=== PATIENT | male | born 1950 | race Caucasian/White ===

== ENCOUNTER 2019-08-14 13:25 | Inpatient (IN) | payer OTHER ==
[2019-08-14] VITALS (14 sets, daily range): BP systolic 128–155; BP diastolic 77–87
[~2019-08-14] VITALS: Ht 172.7 cm; Wt 69.2 kg
--- NOTE | ~2019-08-14 | EMS ---
[facility] [address] [place] [address] EMS Patient Care Report Name: SHANTI MAHAN Room #: PRE [facility]..#: [id number] Admission: Attend Phys: Discharge: Date of : 52 Report #: [id number] THIS REPORT FOR: //name// Report Transmitted: 08/14/2019 13:03 EMS Care Summary [place], [place]/[facility] Incident [id number] @ 08/14/2019 12:43 Incident Location [address] [place] [address] Patient SHANTI MAHAN Male, 68 Years 1950 Patient Address [address] [place] [address] Patient History Diabetes, Patient Allergies No known allergies, Disposition Transported [place] [facility] Reason Diabetic Problem Transported To [facility] Narrative dispatched for a diabetic problem. upon arrival personnel was met at the front door by the pts friend who stated that he came over to help his friend when he found the pt laying on the ground. pt was found laying on the ground where his friend found him for and it was unknown how long he was there. he stated that the pt was a diabetic so a glucose was assessed which was 35. a patent iv was established with 100ml of d10 being administered. vitals were obtained. a glucose was then reassessed which showed 65 but pt was still confused and not fully alert. pt was placed onto the jaxon welding equipment sales representative and was carried to the stretcher. while being transferred the patent iv was compromised and was [facility] [address] [place] [address] EMS Patient Care Report Name: SHANTI MAHAN Room #: [facility]..#: [id number] Admission: Attend Phys: Discharge: Date of : 52 Report #: [id number] removed. once in the ambulance vitals were reassessed with no change in blood pressure. a blood sugar was then checked again which read 45. 1 g of oral glucose was then administered to the pt. a 12 lead showed elevation in lead 2, 3, avf, v4, v5, v6. no trauma was seen to the head neck or back. a stemi was then called to the hospital transportation began with no change in other vitals. pt denied any flu like symptoms. after arrival pt was transferred onto ed bed via draw sheet method. Initial Vitals @13:20P: 105,R: 25,GCS: 14,SpO2: 98, @12:53P: 64,R: 25,BP: 145/74,Pain: 0/10,GCS: 14,Glucose: 35,SpO2: 94,Revised Trauma: 12, @13:21P: 108,R: 25,BP: 132/83,Pain: 0/10,GCS: 14,SpO2: 97,Revised Trauma: 12, @13:12P: 113,R: 25,BP: 138/74,GCS: 14,Glucose: 65,SpO2: 98,Revised Trauma: 12, Assessments @12:50MENTAL:Confused,Person Oriented,Place Oriented,SKIN:HEENT:Head/Face: No Abnormalities,Neck/Airway: No Abnormalities,LUNG SOUNDS:General: No Abnormalities,ABDOMEN:General: No Abnormalities,PELVIS//GI:No Abnormalities,EXTREMITIES:Capillary Refill: Right Upper: < 2 Sec,Left Arm: No Abnormalities,Right Arm: No Abnormalities,Left Leg: No Abnormalities,Right Leg: No Abnormalities,PULSE:Radial: 2+ Normal,NEURO:No Abnormalities, Impression Diabetic Hypoglycemia Procedures @12:54ALS AssessmentResponse: UnchangedSucceeded@12:58Saline Lock 100cc (20 ga) Site: Forearm-LeftResponse: ImprovedSucceeded@12:59Dextrose 10% - 100 Milliliters (ml) - Intravenous (IV)Response: Improved@13:05Saline Lock cc (20 ga) Site: Antecubital-LeftResponse: UnchangedFailed@13:1212-Lead ECGResponse: UnchangedSucceeded@13:15STEMI AlertResponse: Unchanged@13:07Oral Glucose - 1 Grams (gms) - OralResponse: Unchanged Timeline 12:41,Call Received 12:41,Dispatch Notified 12:43,Dispatched 12:43,En Route 12:49,On Scene 12:50,At Patient 12:53,BP: 145/74 M,PULSE: 64,RR: 25 R,SPO2: 94 Ox,ETCO2: ,B,PAIN: 0,GCS: 14, 12:54,ALS Assessment,Response: UnchangedSucceeded, 12:58,Saline Lock 100cc 20 ga Site: Forearm-Left,Response: ImprovedSucceeded, 12:59,Dextrose 10% - 100 Milliliters (ml) - Intravenous (IV),Response: Improved [address] [address] EMS Patient Care Report Name: SHANTI MAHAN Room #: PRE M.R.#: [id number] Admission: Attend Phys: Discharge: Date of : 52 Report #: [id number] 13:05,Saline Lock cc 20 ga Site: Antecubital-Left,Response: UnchangedFailed, 13:07,Oral Glucose - 1 Grams (gms) - Oral,Response: Unchanged 13:12,BP: 138/74 M,PULSE: 113,RR: 25 R,SPO2: 98 Ox,ETCO2: ,B,PAIN: ,GCS: 14, 13:12,12-Lead ECG,Response: UnchangedSucceeded, 13:13,Depart Scene 13:15,STEMI Alert,Response: Unchanged 13:20,BP: / M,PULSE: 105,RR: 25 R,SPO2: 98 Ox,ETCO2: ,BG: ,PAIN: ,GCS: 14, 13:20,At Destination 13:21,BP: 132/83 M,PULSE: 108,RR: 25 R,SPO2: 97 Ox,ETCO2: ,BG: ,PAIN: 0,GCS: 14, 13:37,Call Closed Disclaimer v1.1 Copyright 2020 [employer] This EMS Care Summary contains data elements from the applicable legal record (which may be displayed differently). It is designed to provide pertinent information for the following purposes: continuity of care, clinical quality, and state data reporting. The complete legal record is available to ED staff and administrators of the receiving hospital in [employer]'s Patient Tracker. All data is provided "as is."
[~2019-08-14 13:25] MED LIST: CYCLOBENZAPRINE10 MG PO; EFFEXOR37.5 MG PO; GLUCOPHAGE1000 MG PO; GLUCOTROL5 MG PO; IBUPROFEN 600600 M1 PO; IBUPROFEN200 M2 PO; LEVIMIR PO; LIPITOR80 MG PO; NAPROXEN 375 M375 M1 PO; NEURONTIN 300300 M1 PO
[2019-08-14 13:44] LABS: HEMATOCRIT 47.5 % (42.0-52.0); HEMOGLOBIN 15.9 gm/dL (14.0-18.0); MCH 32.1 pg (26.0-34.0); MCHC 33.6 g/dL (28.0-37.0); MCV 95.5 fL (80.0-100.0); PLATELET COUNT 304 thou/uL (150-400); RBC 4.97 mil/uL (4.50-6.00); RDW 15.5 % (10.5-14.5)
[2019-08-14 13:53] LABS: CALCIUM 9.1 mg/dL (8.5-10.1); CREATININE 1.5 mg/dL (0.7-1.3)
[2019-08-14 14:01] LABS: BE(vivo) -6.9 mmol/L (-2 to +3); HCO3 15.5 mmol/L (22.0-26.0); PCO2 24.6 mmHg (35.0-45.0); PO2 88.1 mmHg (80.0-100.0); pH 7.416 (7.360-7.450)
[2019-08-14 14:04] LABS: ALBUMIN 3.3 g/dL (3.4-5.0); TOTAL BILIRUBIN 1.2 mg/dL (<0.1-1.0); TOTAL PROTEIN 8.7 g/dL (6.4-8.2)
[2019-08-14 14:06] LABS: TROPONIN-I 9.35 ng/mL (<0.06)
[2019-08-14 14:33] LABS: ABSOLUTE NEUTROPHILS 19.1 thou/uL (1.4-8.2); PLATELET ESTIMATE NORMAL
[2019-08-14 14:53] LABS: URINE BILIRUBIN 2+ (Negative); URINE BLOOD 3+ (Negative); URINE CLARITY CLEAR; URINE COLOR YELLOW; URINE GLUCOSE-RANDOM* NEGATIVE (Negative); URINE KETONES 1+ (Negative); URINE LEUKOCYTES-REFLEX NEGATIVE (Negative); URINE NITRITE-REFLEX NEGATIVE (Negative); URINE PROTEIN (DIPSTICK) 2+ (Negative); URINE SPECIFIC GRAVITY >= 1.030 (1.005-1.035); URINE UROBILINOGEN 0.2 E.U./dl (0.2-1.0)
[2019-08-14 14:57] LABS: ICTOTEST (BILI CONFIRMATORY) Negative (Negative)
[2019-08-14 15:07] LABS: AMP/METHAMP Negative (Negative); BARBITURATES Negative (Negative); BENZODIAZEPINES Negative (Negative); COCAINE Negative (Negative); METHADONE Negative (Negative); OPIATES Negative (Negative); PCP Negative (Negative)
[2019-08-14 15:10] LABS: BACTERIA-REFLEX 1-9 Few /HPF (None Seen); CASTS None Seen /LPF (None Seen); CRYSTALS None Seen /LPF (None Seen); SQUAMOUS None Seen /LPF (0-3); URINE RBC 0-2 Rare /HPF (0-2); URINE WBC-REFLEX None Seen /HPF (0-5)
[2019-08-14 15:28] LABS: INR 1.1; PROTIME 11.4 Seconds (9.3-11.4)
[2019-08-14 17:31] LABS: FOLIC ACID 19.9 ng/mL (8.6-58.9)
[2019-08-14 17:34] LABS: HEMATOCRIT 44.2 % (42.0-52.0); HEMOGLOBIN 14.6 gm/dL (14.0-18.0); MCH 31.7 pg (26.0-34.0); PLATELET COUNT 293 thou/uL (150-400); RDW 15.1 % (10.5-14.5); WBC 21.1 thou/uL (4.0-11.0)
[2019-08-14 17:36] LABS: MAGNESIUM 1.9 mg/dL (1.8-2.4); PHOSPHORUS 5.4 mg/dL (2.6-4.7)
[2019-08-14 18:14] LABS: ABSOLUTE NEUTROPHILS 17.7 thou/uL (1.4-8.2); ANISOCYTOSIS 2+
--- NOTE | 2019-08-14 20:59 | NUR ---
ASSUMED CARE OF PT AT APPROX 1730, REPORT TAKEN FROM ED NURSE GREGORY. PT CONFUSED, SLURRING SPEECH, AMHESH-PARESIS IN LEFT UPPER EXTREMITITY. TACHYCARDIC IN THE 110'S. LUNGS ARE CLEAR TO AUSCULTATION, ON RA. SWALLOW STUDY FAILED PER RN IN ED. HEPARIN GTT HAD TO BE RECALCULATED DUE TO INCORRECT WEIGHT IN DOSING CALCULATION. POSSIBLE WHIPPED TOPPING FINISHER TOMORROW, ALSO AN ECCO CARDIOGRAM. PT ON CIWA PROTOCAL, SCORE WAS A 4, NO PHARMACOLOGICAL INTERVENTIONS TAKEN. NIH STROKE SCALE WAS INIATIALLY A 19. PT'S COVID-19 RESULTS ARE NEGATIVE. TWO WOUNDS FOUND ON PT SACRUM, PICTURE TAKEN. WILL CONTINUE TO MONITOR.
[2019-08-15] VITALS (21 sets, daily range): BP systolic 111–159; BP diastolic 54–101
--- NOTE | 2019-08-15 02:02 | NUR ---
MOVED FROM ICU 240 TO ICU 247 PER BED. HEPARIN ADJUSTED PER PROTOCOL.
--- NOTE | 2019-08-15 04:26 | NUR ---
SLEPT PART OF SHIFT. DROWSY WHEN AWAKE BUT WILL FOLLOW SIMPLE COMMANDS. NOTED YELLOW DRAINAGE IN LEFT EYE AND CLEANED EVERY 2 HOURS. NOTED ANXIETY AND AGITATION, FOUND TALKING ON IMAGINARY PHONE TO FAMILY. REDIRECTED. REMEMBERS NURSES NAME AT TIMES. REPOSITIONED EVERY 2 HOURS FOR COMFORT AND SKIN CARE. GAMBOA REMAINS PATENT. WORKING ON GOALS AND PLAN OF CARE FOR NOC. NOT PROGRESSING TOWARDS DISCHARGE GOALS AT THIS TIME. CONTINUE TO ASSES CLOSELY.
--- NOTE | 2019-08-15 06:30 | NUR ---
NOTED WHEN PATIENT IS SLEEPING AND SNORING HE WILL DESAT TO 84% AND RECOVER QUICKLY TO 90'S%. HEAD IS ELEVATED. CONTINUE TO ASSES CLOSELY. MOVING LEFT LEG MORE THIS AM. STILL NOT MOVING LEFT ARM.
--- NOTE | 2019-08-15 08:03 | EKG ---
[facility] [place] [address] ELECTROCARDIOGRAM REPORT Name: SHANTI MAHAN Room #: 247-P ADM IN M.R.#: [id number] Admission: 08/14/19 Attend Phys: Fletcher Benson MD Discharge: Date of : 52 Report #: [id number] THIS REPORT FOR: cc: FAM - Family physician unknown FAM - Family physician unknown Raman Yuan MD [facility] THIS REPORT FOR: //name// [facility] ED Test Date: 2019-08-14 Test Time: 13:25:02 Pat Name: SHANTI MAHAN Department: Room: [facility] Gender: M Clinical Care Manager: ASHLEY : 1950 Requested By: Kathryn Moore Order Number: [id number] MD: Raman Yuan Measurements Intervals [place] Rate: 110 P: 88 AL: 131 QRS: -61 QRSD: 132 T: 10 QT: 371 QTc: 503 Interpretive Statements Baseline artifact Probable atrial flutter with 2:1 conduction Right bundle branch block Inferior myocardial infarction, age indeterminate No previous ECG available for comparison Electronically Signed On 08-15-2019 8:01:48 CDT by Raman Yuan [email or web address] <ELECTRONICALLY SIGNED> By: Raman Yuan MD, [facility] 08/15/19 0801 1325 1325 Raman Yuan MD, [facility] /EPI
[2019-08-15 08:34] LABS: HEMATOCRIT 40.8 % (42.0-52.0); HEMOGLOBIN 13.6 gm/dL (14.0-18.0); MCH 32.3 pg (26.0-34.0); MCHC 33.3 g/dL (28.0-37.0); RBC 4.21 mil/uL (4.50-6.00); RDW 15.3 % (10.5-14.5); WBC 17.9 thou/uL (4.0-11.0)
[2019-08-15 08:43] LABS: ALBUMIN 2.7 g/dL (3.4-5.0); CALCIUM 7.7 mg/dL (8.5-10.1); CREATININE 1.1 mg/dL (0.7-1.3); TOTAL BILIRUBIN 0.9 mg/dL (<0.1-1.0); TOTAL PROTEIN 6.5 g/dL (6.4-8.2)
[2019-08-15 08:50] LABS: POTASSIUM 3.4 mmol/L (3.5-5.1)
--- NOTE | 2019-08-15 10:12 | NUR ---
0700-ASSUMED CARE OF PT.--VW
--- NOTE | 2019-08-15 10:14 | 2DMMODE ---
[facility] [address] [place] [address] 2 D/M-MODE ECHOCARDIOGRAM Name: SHANTI MAHAN Room #: 247-P ADM IN M.R.#: [id number] Admission: 08/14/19 Attend Phys: Fletcher Benson MD Discharge: Date of : 52 Report #: [id number] THIS REPORT FOR: cc: FAM - Family physician unknown FAM - Family physician unknown Paulino Arechiga MD ~ APPROVED REPORT Study performed: 08/15/2019 09:28:08 EXAM: Comprehensive 2D, Doppler, and color-flow Echocardiogram Patient Location: ICU Room #: 247 Status: routine BSA: 1.74 HR: 107 bpm BP: 136/84 mmHg Rhythm: NSR/tachy Other Information Study Quality: Adequate/not all measurements taken. Technically limited study due to heavy breathing and movement. No cooperation. Indications NSTEMI. ETOH withdrawls, HTN. 2D Dimensions IVSd: 14.54 (7-11mm) LVOT Diam: 19.74 (18-24mm) LVDd: 44.90 mm PWd: 9.50 (7-11mm) LVDs: 35.71 (25-40mm) Aortic Root: 34.51 mm Aortic Valve AoV Peak Ant.: 1.49 m/s AO Peak Gr.: 8.82 mmHg LVOT Max P.21 mmHg LVOT Max V: 1.14 m/s AVIS Vmax: 2.35 cm2 Mitral Valve E/A Ratio: 0.8 MV Decel. Time: 205.70 ms [facility] [address] [place] [address] 2 D/M-MODE ECHOCARDIOGRAM Name: SHANTI MAHAN Room #: 247-P [facility] IN M.R.#: [id number] Admission: 08/14/19 Attend Phys: Fletcher Benson, Discharge: Date of : 52 Report #: [id number] E Max Ant.: 1.06 m/s MV A Ant.: 1.26 m/s MV PHT: 59.65 ms Pulmonary Valve PV Peak Ant.: 1.07 m/s PV Peak Gr.: 4.56 mmHg Tricuspid Valve TR Peak Ant.: 2.96 m/s RAP Estimate: 5.00 mmHg TR Peak Gr.: 35.09 mmHg PA Pressure: 40.00 mmHg Left Ventricle The left ventricle is normal size. Regional wall motion abnormalities are noted. Apical hypokinesis Mild basal septal hypertrophy is present. Left ventricular systolic function is mild to moderately decreased. LVEF is 40-45%. Mild diastolic dysfunction is present (impaired relaxation pattern). Right Ventricle The right ventricle is normal size. The right ventricular systolic function is normal. Atria The left atrium size is normal. The right atrium size is normal. Aortic Valve The aortic valve is normal in structure. No aortic regurgitation is present. There is no aortic valvular stenosis. Mitral Valve The mitral valve is normal in structure. There is no mitral valve regurgitation noted. No evidence of mitral valve stenosis. Tricuspid Valve The tricuspid valve is normal in structure. Trace to mild tricuspid regurgitation. Estimated PAP is 40mmHg. Pulmonic Valve Pulmonic valve is not well visualized. Great Vessels The aortic root is normal in size. Descending aorta is not well visualized. IVC is normal in size and collapses >50% with inspiration. [facility] [address] [place] [address] 2 D/M-MODE ECHOCARDIOGRAM Name: SHANTI MAHAN Room #: 247-P [facility] IN M.R.#: [id number] Admission: 08/14/19 Attend Phys: Fletcher Benson, Discharge: Date of : 52 Report #: [id number] Pericardium There is no pericardial effusion. <Conclusion> The left ventricle is normal size. LVEF is 40-45%. Regional wall motion abnormalities are noted. Apical hypokinesis The aortic valve is normal in structure. The mitral valve is normal in structure. The tricuspid valve is normal in structure. Trace to mild tricuspid regurgitation. Estimated PAP is 40mmHg. Pulmonic valve is not well visualized. There is no pericardial effusion. <ELECTRONICALLY SIGNED> By: Paulino Arechiga MD 08/15/19 1012 1012 1012 Paulino Arechiga MD /FLORIDALMA
--- NOTE | 2019-08-15 16:56 | NUR ---
INITIAL ASSESSMENT: Received consult. ABEL reviewed chart and spoke with nursing and attending physician. Pt was admitted from home due to Nstemi/ETOH withdrawal. Neuro consulted. Pt with left sided weakness. Pt to have an MRI today. Pt unable to answer questions. ABEL spoke with pt's son, Patel, via phone. Introduced role of SW. Pt normally lives at home alone. Pt has been independent with ADLs. Pt does have a cane and cpap at home. No hx of services or post-acute placement. Pt's PCP was Dr. Kei Leija. However, Dr. Leija recently retired and pt's son is unsure which physician pt sees now. Pt with hx of daily ETOH use (2-3 vodka drinks). Pt's son states that pt's ETOH consumption has increased over the past few years. Pt with hx of DM and pt has not been controlling his BG as recommended. Will need therapy evaluations when able to participate. ABEL is following to assist as needed with discharge planning.
[2019-08-16] VITALS (21 sets, daily range): BP systolic 123–153; BP diastolic 69–98
[2019-08-16 04:57] LABS: HEMATOCRIT 41.4 % (42.0-52.0); MCHC 33.8 g/dL (28.0-37.0); MCV 94.6 fL (80.0-100.0); RBC 4.37 mil/uL (4.50-6.00); RDW 14.8 % (10.5-14.5); WBC 16.2 thou/uL (4.0-11.0)
[2019-08-16 05:27] LABS: CALCIUM 8.8 mg/dL (8.5-10.1); CREATININE 0.8 mg/dL (0.7-1.3); MAGNESIUM 2.1 mg/dL (1.8-2.4); PHOSPHORUS 1.5 mg/dL (2.5-4.9); POTASSIUM 3.1 mmol/L (3.5-5.1)
--- NOTE | 2019-08-16 06:16 | NUR ---
Received report and assumed patient care at 1900. Patient continues to have slurred/garbbled speech with some words being incomprehensible. At times patient oriented and at other times patient disoriented. Patient has no complaints of chest pain being that his cardiac markers are elevated and no signs of acute ischemia was noted. VS remained stable throughout this shift and patient monitored closely for any bleeding or changes in status.
--- NOTE | 2019-08-16 09:15 | NUR ---
Call placed to Dr Benson and Belem Teresa RN for cardiology. Order received to stop Heparin gtt while pt goes to radiology for MRI tests. Obtain Aptt and restart heparin gtt upon return to ICU. Follow protocol.
--- NOTE | 2019-08-16 10:45 | NUR ---
Pt returned to ICU following MRI and placed back on monitors. Heparin gtt resumed at previous rate (17.94 unit/kg/hr) and will order stat Aptt. Dr Benson here to see pt upon return. Pt is drowsy but responsive.
--- NOTE | 2019-08-16 10:56 | HC ---
[facility] [place] [address] [place] [address] CONSULTATION Name: SHANTI MAHAN Room #: 247-P ADM IN M.R.#: [id number] Admission: 08/14/19 Attend Phys: Fletcher Benson MD Discharge: Date of : 52 Report #: [id number] THIS REPORT FOR: cc: FAM - Family physician unknown FAM - Family physician unknown Cy Reina MD ~ CC: [facility] unknown Paulino Benson DATE OF SERVICE: 08/15/2019 CHIEF COMPLAINT: Sacral pressure ulceration. HISTORY OF PRESENT ILLNESS: This is a 68-year-old male patient with a history of hypertension, depression, and alcohol abuse, was found unresponsive at home by EMS. He had an elevated troponin, a glucose of 35 and was given D10. He is in the ICU. He is not on a respirator. He is not able to answer any questions and is somewhat obtunded. ALLERGIES: No known drug allergies. MEDICATIONS: Include cyclobenzaprine, gabapentin, Effexor, Glucotrol, metformin, atorvastatin, ibuprofen. SOCIAL HISTORY: He has a history of daily alcohol use. He is a former smoker, apparently uses marijuana. REVIEW OF SYSTEMS: Unobtainable due to the patient's unresponsive condition. PHYSICAL EXAMINATION: VITAL SIGNS: At this time include temperature 36.3, pulse 104, respiratory rate 22, blood pressure 143/85. GENERAL: This is a chronically ill-appearing male patient who appears to be obtunded. He does moan. He is slow to open his eyes to painful stimuli. HEENT: Head normocephalic. Nose and throat clear. NECK: Supple. LUNGS: Diminished. HEART: Regular. ABDOMEN: Soft. Bowel sounds present. EXTREMITIES: Without clubbing or cyanosis. Examination of the sacral region and the back demonstrates a dry eschar on the sacral region. It is not overtly infected. It is a little bit soft. NEUROLOGIC: The patient does appear to be moving symmetrically. LABORATORY DATA: Sodium 144, potassium 3.4, chloride 108, CO2 of 20, BUN 27, [facility] [address] [place] [address] CONSULTATION Name: SHANTI MAHAN Room #: 247-P [facility] ..#: [id number] Admission: 08/14/19 Attend Phys: Fletcher Benson MD Discharge: Date of : 52 Report #: [id number] creatinine 1.1, glucose 212, calcium 7.7, magnesium 2.0. AST is 226, ALT is 71, alkaline phosphatase is 55. CPK is 5637. Troponin I is 12.7. Albumin is 2.7. ____ White blood cell count 21.1 with hemoglobin of 14.6. CLINICAL IMPRESSION: 1. An unstageable pressure ulcer of the sacrum after having been found down unresponsive at home. 2. Alcohol withdrawal. 3. History of diabetes mellitus. 4. Profound hypoglycemia. 5. Moderate protein-calorie malnutrition, albumin 2.7. RECOMMENDATIONS: At this point in time, we will recommend Xeroform and Border foam to the sacral ulcer daily. He will need a low air loss mattress with q. 2 hour turning and positioning, aggressive nutritional support and aggressive management of his medical condition and potential with alcohol withdrawal. We will consider some bedside debridement once he is more stabilized. I appreciate being asked to see him in consultation. <ELECTRONICALLY SIGNED> By: Cy Reina MD 08/16/19 1056 [id number] 50 Cy Reina MD /nt
--- NOTE | 2019-08-16 15:43 | NUR ---
SW reviewed chart and spoke with attending physician. Pt had MRI earlier today. Neuro and psych are following and will re-evaluate when pt is more alert and able to participate. SW is following to assist as needed with discharge planning.
--- NOTE | 2019-08-16 19:00 | NUR ---
Report given to RN assuming care. Heparin gtt was adjusted per protocol. Pt continues to ask for water. Restless at times.
--- NOTE | 2019-08-16 19:42 | NUR ---
1845HRS APTT 71.6 HEPARIN ADJUSTED AT 0728HRS TO 17.87 UNITS/KG/HR WITNESSED BY VIVIANE Toney RN
[2019-08-17] VITALS (7 sets, daily range): BP systolic 108–145; BP diastolic 64–90
[2019-08-17 02:00] LABS: HEMATOCRIT 36.7 % (42.0-52.0); HEMOGLOBIN 12.2 gm/dL (14.0-18.0); MCH 31.5 pg (26.0-34.0); MCHC 33.4 g/dL (28.0-37.0); MCV 94.5 fL (80.0-100.0); RBC 3.88 mil/uL (4.50-6.00); RDW 14.8 % (10.5-14.5); WBC 13.5 thou/uL (4.0-11.0)
[2019-08-17 02:03] LABS: CALCIUM 8.4 mg/dL (8.5-10.1); CREATININE 0.9 mg/dL (0.7-1.3); MAGNESIUM 1.9 mg/dL (1.8-2.4)
--- NOTE | 2019-08-17 02:22 | NUR ---
@0140 HRS APTT 54.4 THERAPEUTIC, NO DOSE CHANGE.
--- NOTE | 2019-08-17 06:33 | NUR ---
PT A&O X4 OCCASIONALLY FORGETFUL RESTLESS AND ANXIOUS. ABLE TO ANSWER TO BASIC QUESTIONS. DENIES PAIN. PT HAD MULTIPLE ATTEMPTS TO CRAWL OOB AT HS AND PULLING LINES. CONTINUES ON SOFT RESTRAINTS. NPO ORAL CARE PROVIDED THROUGHOUT THE NIGHT. NO EVIDENCE OF ETHOL W/DRAWAL NOTED. OCC NON-PODUCTIVE COUGH. PT ON 2L O2 PER NC IN PLACE OF CPAP WEARS NIGHTLY AT HOME. PT ON HEPARIN GTT LAST APPT OVERNIGHT WAS THERAPEUTIC. AM LAB K=3.0 ORDER OBTAINED FOR KCL 40 MEQ. PT DIABETIC. ON PPN. ACCU CHECKS Q6H. SPOUSE CALLED X2 OVERNIGHT TO CHECK ON THE PT SHE WAS VERY EMOTIONAL AND ASKED THIS NURSE TO EXPLAIN WHY SHE CANNOT COME TO SEE HIM AT THE HOSP D/T COVID 19 RESTRICTIONS
--- NOTE | 2019-08-17 09:43 | NUR ---
ASSESSMENTS AND INTERVENTIONS DOCCUMENTED. PATIENT A LITTLE RESTLESS AT THE START OF SHIFT. RESTRAINTS REMOVED PATIENT MORE CALM. SWALLOW EVALUATION DONE AND PATIENT GIVEN DIET. DR. REYNA ROUNDING ON PATIENT ORDERS FOR TRANSFER TO CCU RECIEVED.
--- NOTE | 2019-08-17 15:20 | NUR ---
SW reviewed chart and spoke with attending physician. Pt more alert today. Therapy ordered to evaluate pt for discharge needs. Discussed with 5[facility] rehabilitation services coordinator to see if pt would be a candidate for inpt acute rehab. Pt may transfer out of ICU later today. ABEL is following to assist as needed with discharge planning.
--- NOTE | 2019-08-17 23:09 | NUR ---
Pt confused. Pulled out IV left forearm. Complete bed bath given. Hair washed. Linens changed. New #20 PIV placed right forearm x 1 attempt for PPN. Repositioned for comfort. Pt appreciative of care, pleasant.
[2019-08-18] VITALS (7 sets, daily range): BP systolic 111–134; BP diastolic 66–96
[2019-08-18 04:17] LABS: HEMATOCRIT 40.3 % (42.0-52.0); HEMOGLOBIN 13.1 gm/dL (14.0-18.0); MCH 31.8 pg (26.0-34.0); MCHC 32.5 g/dL (28.0-37.0); MCV 97.8 fL (80.0-100.0); RBC 4.12 mil/uL (4.50-6.00); RDW 14.9 % (10.5-14.5); WBC 10.4 thou/uL (4.0-11.0)
[2019-08-18 04:23] LABS: CALCIUM 8.4 mg/dL (8.5-10.1); CREATININE 0.8 mg/dL (0.7-1.3); MAGNESIUM 1.8 mg/dL (1.8-2.4); PHOSPHORUS 2.7 mg/dL (2.5-4.9); POTASSIUM 3.3 mmol/L (3.5-5.1)
--- NOTE | 2019-08-18 06:33 | NUR ---
Shift summary: Pt awake all night. Restless and impulsive. Pleasantly confused. Oriented to self and occasionally place and situation. Very impulsive. VSS. Afebrile. SR. Room air. Pt constantly pulling nasal cannula off. Room air SaO2 generally >94%. Lungs coarse. Harsh congested cough. Swallows sputum. BS active. Tolerating diet. Does not care for honey thickened liquids or pureed diet but ate 100%. PPN as ordered. Pt incontinent of multiple liquid stools requiring complete bed changes and baths. Servin with adequate output. Heparin gtt therapeutic. Awaiting CCU bed availability.
--- NOTE | 2019-08-18 14:25 | NUR ---
SW reviewed chart and spoke with attending physician. Pt failed swallow eval. Pt to have cardiac cath today. PT/OT on hold and will evaluate pt over the weekend. ABEL discussed case with [facility] workplace rehabilitation officer, who will eval pt on Wednesday. No weekend discharge planned. ABEL is following to assist as needed with discharge planning.
--- NOTE | 2019-08-18 15:55 | NUR ---
ASSESMENTS AND INTERVENTIONS DOCCUMENTED. PATIENT LEFT UNIT FOR VIDEO SWALLOW. PATIENT NOT ABLE TO TOLERATE IT. PATIENT DIET CHANGED TO NPO AND CXR ORDERED. PATIENT'S SON CALLED AND UPDATED AND EDUCATED ABOUT POC. CONSENT RECIEVED. PATIENT RETURNING TO UNIT AT 1555. PATIENT FLAT, RESTING VS STABLE AND RIGHT GROIN SITE IS CLEAN, DRY AND INTACT. RN TO MONITOR.
[2019-08-18 16:56] LABS: PROTIME 9.8 Seconds (9.3-11.4)
[2019-08-18 16:57] LABS: APTT 30.1 Seconds (24.5-32.8)
[2019-08-18 17:05] LABS: URINE BILIRUBIN NEGATIVE (Negative); URINE BLOOD TRACE (Negative); URINE CLARITY CLEAR; URINE COLOR YELLOW; URINE GLUCOSE-RANDOM* NEGATIVE (Negative); URINE KETONES NEGATIVE (Negative); URINE LEUKOCYTES-REFLEX NEGATIVE (Negative); URINE NITRITE-REFLEX NEGATIVE (Negative); URINE PROTEIN (DIPSTICK) NEGATIVE (Negative)
[2019-08-19 03:00] VITALS: BP 127/64
[2019-08-19 04:08] LABS: GLYCOHEMOGLOBIN (HGB A1C) 6.9 % (4.8-5.6)
[2019-08-19 05:43] LABS: HEMOGLOBIN 13.1 gm/dL (14.0-18.0); MCH 31.9 pg (26.0-34.0); MCHC 33.6 g/dL (28.0-37.0); MCV 94.9 fL (80.0-100.0); RBC 4.1 mil/uL (4.50-6.00); RDW 14.3 % (10.5-14.5); WBC 9.2 thou/uL (4.0-11.0)
--- NOTE | 2019-08-19 05:44 | NUR ---
END OF SHIFT NOTE. A/OX3-4 WITH PERIODS OF FORGETFULNESS. DENIES PAIN. SR WITH BBB ON MONITOR, 70S. BP 130-140S. 2/1 PULSES. NO EDEMA. LUNGS DIMINISHED. O2 SATS 98-100 ON 2L VIA NC. INTERMITENT COUGH. NPO, FAILED VIDEOSWALLOW STUDY ON 08/18/19, TO RETEST TODAY. GAMBOA DRAINING YELLOW URINE, OUTPUT 40-60/HR. DRESSING TO COCCYX WOUND CHANGED. PPN INFUSING @ 80CC/HR THROUGH RIGHT FOREARM IV. PATIENT RESTING WITH EYES CLOSED AT THIS TIME. WILL REPORT OFF TO DAY SHIFT RN.
[2019-08-19 05:54] LABS: CALCIUM 8.6 mg/dL (8.5-10.1); MAGNESIUM 1.8 mg/dL (1.8-2.4); POTASSIUM 4.2 mmol/L (3.5-5.1)
[2019-08-19 06:00] LABS: PHOSPHORUS 3.9 mg/dL (2.5-4.9)
[2019-08-19 08:01] VITALS: BP 92/69
--- NOTE | 2019-08-19 09:01 | NUR ---
ASSUMED CARE AT 0700, ASSESSMENT AND VITAL SIGNS COMPLETED PER ICU PROTOCOL. 0730: PT VERY UPSET THAT HE IS NPO AND UNABLE TO EAT AND DRINK. RN CALLED AND LEFT A VOICEMAIL FOR SPEECH THERAPY, HE IS SUPPOSED TO BE REVALUATED TODAY. 899: DR. RODRIGUEZ ROUNDED THIS AM, SPOKE WITH PT ABOUT POC. PT ONCE AGAIN VOICED HIS FRUSTRATION WITH BEING NPO. PT DESIRES TO SPEAK WITH HIS SON, PT'S PHONE IS . PT REQUESTED RN TO CALL SON AND BRING HIS PHONE LINUX SYSTEM ADMINISTRATOR TO THE HOSPITAL. 904: RN CALLED PT'S SON, AUNDREA, WHOM PROVIDED SECURITY CODE. RN GAVE UPDATE PT'S CONDITION. SON SAID HE WILL BRING PT'S PHONE LINUX SYSTEM ADMINISTRATOR TO THE HOSPITAL.
[2019-08-19 09:44] VITALS: BP 120/59
[2019-08-19 15:50] VITALS: BP 117/94
--- NOTE | 2019-08-19 19:40 | NUR ---
PT TRANSFERED FROM ER IN STABLE CONDITION. WILL CONTINUE TO MONITOR.
[2019-08-19 19:55] VITALS: BP 121/76
[2019-08-19 23:48] VITALS: BP 121/72
--- NOTE | 2019-08-20 04:46 | NUR ---
ASSESSMENT DOCUMENTED.PT BEEN RESTING IN NO ACUTE DISTRESS.A/O.DENIES PAIN OR ANY DISCOMFORT.TURNS SELF IN BED.SR W/BBB ON MONITOR.ON RA W/O RESP DISTRESS.PT DENIES ANY NEEDS AT THIS TIME.WILL CONT TO MONITOR PER POC.
[2019-08-20 06:18] VITALS: BP 125/81
[2019-08-20 07:40] VITALS: BP 143/67
[2019-08-20 11:23] LABS: HEMATOCRIT 38.8 % (42.0-52.0); HEMOGLOBIN 13.3 gm/dL (14.0-18.0); MCH 32.1 pg (26.0-34.0); MCHC 34.3 g/dL (28.0-37.0); MCV 93.6 fL (80.0-100.0); RBC 4.15 mil/uL (4.50-6.00); RDW 14.4 % (10.5-14.5); WBC 12.3 thou/uL (4.0-11.0)
[2019-08-20 11:30] VITALS: BP 111/60
[2019-08-20 11:37] LABS: ALBUMIN 2.1 g/dL (3.4-5.0); CALCIUM 8.8 mg/dL (8.5-10.1); CREATININE 1.1 mg/dL (0.7-1.3); POTASSIUM 3.9 mmol/L (3.5-5.1); TOTAL BILIRUBIN 0.4 mg/dL (<0.1-1.0)
[2019-08-20 13:37] LABS: CHOLESTEROL 209 mg/dL (<200); HDL CHOLESTEROL 40 mg/dL (>40); LDL CHOLESTEROL 140 mg/dL (<100); TC:HDL 5.2 Ratio (Not establshd); TRIGLYCERIDE 145 mg/dL (<150); VLDL 29 mg/dL (<40)
[2019-08-20 17:15] VITALS: BP 105/66
[2019-08-20 18:15] VITALS: BP 112/87
--- NOTE | 2019-08-20 19:41 | NUR ---
ASSESSMENT CHARTED. PT ALERT AND ORIENTED WITH FORGETFULNESS. DENIED HAVING PAIN OR DISCOMFORT. VSS. PT FELL @ 1715 REPORT THAT HE WAS TRANSFERING HIMSELF TO THE BATHROOM AND HIS LEGS GAVE UP ON HIM AND HE ALSO FELT WEAK. DENIED HAVING PAIN AFTER FALL. VSS. NO INJURY NOTED. DR. RODRIGUEZ NOTIFED, HOUSESUPERVISOR NOTIFIED, AND SON NOTIFIED. ON COMING NURSE NOTIFIED ABOUT PT'S FALL. FALL PRECAUTION IN PLACE. WILL CONTINUE TO MONITOR.
[2019-08-20 20:01] VITALS: BP 104/83
--- NOTE | 2019-08-21 02:47 | NUR ---
ASSESSMENT DOCUMENTED.PT RESTING AT THIS TIME.PT WAS IMPULSIVE AT THE BEGINNING OF THE SHIFT DEMANDING TO HAVE REGULAR WATER RATHER THAN THICKENED WATER,EDUCATED ON THE RATIONALE OF GIVING HIM THICKENED WATER,PT VOICED UNDERSTANDING BUT CONTINUES TO ASK FOR REGULAR WATER,REQUESTED TO HAVE CPAP,FOLDER MACHINE NOTIFIED,CPAP ORDERED AND ON AT THIS TIME,TOLERATING.DENIES PAIN.FALL PRECAUTIONS IN PLACE.WILL CONT TO MONITOR PER POC.
[2019-08-21 04:22] VITALS: BP 99/81
[2019-08-21 04:33] LABS: CALCIUM 8.3 mg/dL (8.5-10.1); CREATININE 1.1 mg/dL (0.7-1.3); MAGNESIUM 1.9 mg/dL (1.8-2.4); POTASSIUM 3.7 mmol/L (3.5-5.1)
[2019-08-21 04:44] LABS: HEMATOCRIT 36.6 % (42.0-52.0); HEMOGLOBIN 12.5 gm/dL (14.0-18.0); MCH 32.2 pg (26.0-34.0); MCHC 34.1 g/dL (28.0-37.0); MCV 94.4 fL (80.0-100.0); RBC 3.87 mil/uL (4.50-6.00); RDW 14.5 % (10.5-14.5); WBC 13.5 thou/uL (4.0-11.0)
[2019-08-21 08:05] VITALS: BP 128/67
[2019-08-21] MEDS ORDERED: IMDUR 30 MG TAB30 M1 PO ×2 (09:46)
[2019-08-21] MEDS ORDERED: ASPIR 8181 MG PO ×2 (09:46)
[2019-08-21] MEDS ORDERED: COREG3.125 MG PO ×2 (09:46)
[2019-08-21 11:45] VITALS: BP 132/61
--- NOTE | 2019-08-21 16:14 | NUR ---
ABEL reviewed chart and spoke with attending physician. Pt was transferred to from ICU. Pt to have video swallow study. CTS consulted. Pt will need CABG. 5N consult ordered to evaluate pt for possible admission to inpt acute rehab. Recommendation made for pt to go to post-acute for continued rehab services/medical mgmt and supervision. ABEL spoke with pt's son, Patel, via phone to provide update. Pt's son is agreeable with 5N consult. ABEL also sent SNF list to Patel via email for review, should SNF placement be needed. ABEL discussed with 5N naval gunfire liaison officer, who states they are able to accept pt when medically stable. ABEL is following to assist as needed with discharge planning.
[2019-08-21 16:20] VITALS: BP 120/65
--- NOTE | 2019-08-21 16:51 | NUR ---
PT ALERT AND ORIENTED WITH FORGETFULNESS. REPORT FEELING MUCH BETTER TODAY. HAD LOW BP THIS AM. PASSED VIDEO SWALLOW STUDY. DIET ADVANCED TO REGULAR DIET. NPO AFTER MIDNIGHT FOR EGD IN AM. FALL PRECAUTION IN PLACE. WILL CONTINUE TO MONITOR.
[2019-08-21 20:46] VITALS: BP 124/76
[2019-08-22 04:33] VITALS: BP 118/55
[2019-08-22 05:18] LABS: HEMATOCRIT 38.4 % (42.0-52.0); HEMOGLOBIN 12.8 gm/dL (14.0-18.0); MCH 31.7 pg (26.0-34.0); MCHC 33.5 g/dL (28.0-37.0); MCV 94.6 fL (80.0-100.0); RBC 4.06 mil/uL (4.50-6.00); RDW 14.4 % (10.5-14.5); WBC 12.8 thou/uL (4.0-11.0)
[2019-08-22 05:29] LABS: CALCIUM 8.3 mg/dL (8.5-10.1); CREATININE 1.1 mg/dL (0.7-1.3); POTASSIUM 4.1 mmol/L (3.5-5.1)
--- NOTE | 2019-08-22 05:31 | NUR ---
pt resting quietly with cpap till around 0100 and wanted cpap off, vss, no c/o pain, npo after mnoc for egd today, son alayna called and wants Doctor to call with plans for today, will con't to monitor per ppoc.
[2019-08-22 08:29] VITALS: BP 125/73
--- NOTE | 2019-08-22 08:57 | HC ---
[facility] [place] [address] CONSULTATION Name: SHANTI MAHAN Room #: 209-P [facility] IN .R.#: [id number] Admission: 08/14/19 Attend Phys: Fletcher Benson MD Discharge: Date of : 52 Report #: [id number] THIS REPORT FOR: cc: FAM - Family physician unknown FAM - Family physician unknown Kristofer Chen MD ~ CC: ROGERS unknown Paulino Benson DATE OF SERVICE: 08/19/2019 We were asked to see the patient by Dr. Arechiga. HISTORY OF PRESENT ILLNESS: The patient is a 68-year-old with coronary artery disease. The patient was admitted on 08/14/2019 after having been found unresponsive at home. EMS brought the patient to the hospital. When EMS arrived, glucose was 35. EKG showed ST elevations was called out as STEMI. The patient denied having had chest pain and in fact states he does not have shortness of breath or chest pain on exertion or at rest previously. Since admission, patient has been treated for alcohol withdrawal. He also has been treated for sacral ulcer. Cardiac catheterization was done yesterday that showed 3-vessel coronary artery disease. The patient has a diagnosis of diabetes mellitus and with the 3-vessel disease, we were consulted for consideration of bypass surgery. PAST MEDICAL HISTORY: Significant for hypertension. MEDICATIONS AT HOME: Includes cyclobenzaprine, gabapentin. ALLERGIES: None known. SOCIAL HISTORY: The patient reports tobacco use in the past. Toxicology report states the patient does use marijuana and alcohol by history. REVIEW OF SYSTEMS: Unobtainable on admission. GENERAL: No fever or chills. EYES: No vision change. HEENT: Denies headache, nasal discharge. RESPIRATORY: Denies cough, shortness of breath. CARDIAC: Denies angina. Denies palpitations. GASTROINTESTINAL: Denies nausea, vomiting blood. GENITOURINARY: Denies urgency, frequency blood. MUSCULOSKELETAL: Denies bone and joint pain. [facility] [address] [place] [address] CONSULTATION Name: SHANTI MAAHN Room #: 209-P [facility] IN [facility]#: [id number] Admission: 08/14/19 Attend Phys: Fletcher Benson MD Discharge: Date of : 52 Report #: [id number] SKIN: Denies rash or infection. ENDOCRINE: Denies goiter or tremors. PSYCHIATRIC: Does drink alcohol reported either more vodka a good day. NEUROLOGIC: As mentioned, found unresponsive, but denies previous neurologic dysfunction. PHYSICAL EXAMINATION: GENERAL: The patient is sitting in chair, awake, alert, seems comfortable. VITAL SIGNS: Heart rate 88, sinus. O2 sat 97 on 2 liters, blood pressure 120/59 by cuff. HEENT: No scleral icterus, no arcus. NECK: No mass, no bruit. CHEST: Some scattered rhonchi. HEART: Rhythm regular, no murmurs. ABDOMEN: Soft. EXTREMITIES: No clubbing, cyanosis or edema. VASCULAR: No obvious saphenous vein problems, 2+ popliteal pulses. ASSESSMENT: The patient has severe 3-vessel coronary artery disease with diabetes mellitus whether or not previously diagnosed. I have discussed coronary artery bypass surgery for treatment of this. Risks and details were discussed. Risks include but are not limited to bleeding, infection, anesthesia risks, heart problems, lung problems, stroke and . The patient understands all of this and wishes to reflect. I will discuss timing of surgery with others in view of admission for what appears to be toxic metabolic encephalopathy. Thank you for the consult. <ELECTRONICALLY SIGNED> By: Kristofer Chen MD 08/22/19 0857 [id number] 31 Kristofer Chen MD /nt
[2019-08-22 11:05] VITALS: BP 118/64
--- NOTE | 2019-08-22 13:33 | NUR ---
Patient accepted to [facility] acute rehab. He reported to RN practioner he wanted his son to make decision of transfer. Left message for son and no response. Sp with patient who is agreeable to transfer to [facility]. Updated phys and RN.
[2019-08-22] MEDS ORDERED: SSD CREAM 1% 5050 GM TOP ×2 (13:57)
[2019-08-22] MEDS ORDERED: ENOXAPARIN40 MG/0.1 SUBQ ×2 (13:57)
[2019-08-22] MEDS ORDERED: LIPITOR40 MG PO ×2 (13:57)
[2019-08-22] MEDS ORDERED: SIMETHICON CHEW80 M1 PO ×2 (13:57)
[2019-08-22] MEDS ORDERED: MUPIROCIN22 GM NASAL ×2 (13:57)
[2019-08-22] MEDS ORDERED: VITAMIN B-1100 M2 PO ×2 (13:57)
[2019-08-22] MEDS ORDERED: NOVOLOG100 UNIT/1 SUBQ ×2 (13:58)
--- NOTE | 2019-08-22 15:56 | NUR ---
ASSUMED CARE AT SHIFT CHANGE, ALERT AND ORIENTED BUT CONFUSED AT TIMES. VSS AND DENIES ANY DISCOMFORT. PATIENT PROGRESSING TOWARDS GOAL, AND PLAN IS TO TRANSFER HIM TO [facility] REHAB. WILL CONTINUE WITH POC.
[2019-08-22 16:50] VITALS: BP 102/62
--- NOTE | 2019-08-22 17:03 | NUR ---
PATIENT HAS BEEN ACCEPTED TO ACUTE REHAB AND WILL BE ADMITTED TO REHAB THIS DATE. PATIENT SEEN BY MANTEL CRAFTSMAN AND EXPECTATIONS AND REQUIREMENTS FOR [facility] WERE DISCUSSED. PATIENT GIVEN BROCHURE. THANK YOU FOR THIS REFERRAL.
[2019-08-22 17:57] VITALS: BP 102/62
--- NOTE | 2019-09-01 17:09 | HC ---
[facility] [place] [address] CONSULTATION Name: SHANTI MAHAN Room #: 209-P [facility] IN M.R.#: [id number] Admission: 08/14/19 Attend Phys: Fletcher Benson MD Discharge: 08/22/19 Date of : 52 Report #: [id number] THIS REPORT FOR: cc: [facility] - Family physician unknown [facility] - Family physician unknown Zach Fischer MD ~ CC: [facility] unknown Paulino Benson DATE OF SERVICE: 08/21/2019 HISTORY OF PRESENT ILLNESS: The patient is a 68-year-old white male originally admitted to [facility] on 08/14/2019 unresponsive, noted to be hypoglycemic. He was noted to have acute metabolic encephalopathy. This was thought to be due to a combination of ETOH withdrawal and decreased blood sugar. The patient also was noted to have some acute renal insufficiency with rhabdomyolysis. Also was noted to have a non-ST elevation MO. He is noted to have 3-vessel coronary artery disease noted to be severe. Cardiothoracic Surgery has seen the patient and recommends surgery with the timing to be determined. He has been improving overall. He was seen by Gastroenterology with concern regarding dysphagia and aspiration. He has been on a nectar thickened liquid diet. He is to have a video swallow study. Gastroenterology also is planning for him to have an EGD study with recommendations to start PPI. We are seeing him in rehabilitation medicine consultation. PAST MEDICAL HISTORY: Includes hypertension, elevated lipids, depression. MEDICATIONS: Please see the full medication listing. ALLERGIES: No known drug allergies. SOCIAL HISTORY: Lives in a house alone, flight of steps to the basement where there is laundry. Premorbid cane ambulator. Son is a dentist and there is a daughter that lives [address]. He thinks that the daughter might assist him some if we asked her specifically to. Otherwise, he does not have anyone to assist. REVIEW OF SYSTEMS: No current complaints of chest pain, shortness of breath or abdominal discomfort. PHYSICAL EXAMINATION: GENERAL: A 68-year-old white male in no obvious distress. VITAL SIGNS: Last recorded temperature 97.7, pulse 80, respirations 19, blood pressure 132/61. The patient is alert. HEENT: Appeared to be benign. [address] [address] CONSULTATION Name: SHANTI MAHAN Room #: 209-P [facility].#: [id number] Admission: 08/14/19 Attend Phys: Fletcher Benson MD Discharge: 08/22/19 Date of : 52 Report #: [id number] NEUROLOGIC: Cranial nerves are grossly intact. Facies are symmetric. He follows basic 1 step commands without difficulty. EXTREMITIES: He has functional range of motion of both upper extremities with strength grade 4-/5. DTRs are trace to 1. Lower extremities, no focal calf swelling, functional range of motion with strength grade 4-/5. DTRs are trace to 1. He has been working in therapies. When last seen he was min assist sit to stand. Gait was 3 steps mod assist. ASSESSMENT: A 68-year-old male with the following problem list: 1. Toxic metabolic encephalopathy. 2. Non-ST elevation myocardial infarction. 3. Possible alcohol withdrawal seizure. Neurology is felt that his presentation was due to acute alcohol withdrawal and low blood sugar. 4. Acute renal insufficiency with rhabdomyolysis, improving, resolving. 5. Dysphagia with workup underway. Speech therapy evaluating with video swallow study along with GI. PLAN: Therapies are continuing to work with him. He has been on nectar thickened liquids and hopefully he can have a diet upgrade depending upon how he does. GI is indicated plans for an EGD study for tomorrow. There also are plans underway for coronary artery bypass grafting at a later date when medically cleared. Wound care is also following regarding an unstageable sacral pressure ulcer. At this point, we will continue to follow along with you regarding his rehab therapy needs. <ELECTRONICALLY SIGNED> By: Zach Fischer MD 09/01/19 1709 1327 0259 Zach Fischer MD /VIKI
--- NOTE | 2019-09-06 02:09 | CATHLAB ---
[facility] [place] [address] INVASIVE PROCEDURE REPORT Name: SHANTI MAHAN Room #: 209-P [facility] IN M.R.#: [id number] Admission: 08/14/19 Attend Phys: Fletcher Benson MD Discharge: 08/22/19 Date of : 52 Report #: [id number] THIS REPORT FOR: cc: FAM - Family physician unknown FAM - Family physician unknown Paulino Arechiga MD ~ APPROVED REPORT Study performed: 08/18/2019 14:35:12 Patient Details Patient Status: In-Patient Room #: The patient is a 68 year-old male Event Personnel Paulino Arechiga Court Bailiff, Sonido Aguirre RTR Glenny Corea Ja'net RTR Monitor, Zacarias Black RN, Juan Ellis RN swimming pool installer and servicer Performed Art Access - R femoral artery* , Left Heart [id number] Initial Mod Sed Same Phys/QHP [facility] [id number] Mod Sed Same Phys/QHP Ea [id number], supervision of conscious sedation Indication Non-STEMI , Chest pain Procedure Narrative The patient was brought electively to the Cardiac Catheterization Laboratory and was prepped and draped in a sterile manner. The Right Groin^ was infiltrated with 1% Lidocaine subcutaneous anesthesia. A PINNACLE 6FR Sheath #[id number] sheath was inserted into the RFA^. Coronary angiography was performed using coronary diagnostic catheters. The right coronary system was accessed and visualized with a JR4 catheter. The left coronary system was accessed and visualized with a JL4 catheter. The left ventricle was accessed and visualized with a PIGTAIL catheter. Closure device was deployed with a Fr MYNXGRIP 6/7F #[id number]. The patient tolerated the procedure well and there were no complications associated with the procedure. There was no hematoma. Intraoperative Conscious Sedation Sedation start time: 14:47 Case end Time: 15:26 [facility] [employer] [address] INVASIVE PROCEDURE REPORT Name: NEGRITOSHANTI José Room #: 209-P [facility] IN ..#: [id number] Admission: 08/14/19 Attend Phys: Fletcher Benson, Discharge: 08/22/19 Date of : 52 Report #: [id number] Versed 1 mg Fluoro Time: 3.44 minutes Dose: DAP 2847.50 cGycm2 416.7 mGy Contrast Type and Amount: Omnipaque 125 ml Coronary Angiography The patient's coronary anatomy is right dominant. Diagnostic Cath Left Main moderate to large caliber vessel of normal origin bifurcates into left anterior and left circumflex vessels. the is a distal tapering of approximately 30-40% LAD rapidly tapering type I vessel with heavy calcifications has i star type lesion of 75% involving lad and diagonal 1. the lad proper continue and tapers with mild lunimal irregularities Diagonal 1 small caliber vessel with ostial lesion as stated above then reconstitutes and is free of high grade lesions Diagonal 2 small caliber vessel without high grade lesions Circumflex moderate to large caliber nondominant vessel with proximal luminal irregularities. it hten bifurcates into two marginal branches with aconcentric lesion of at least 70% involving the origin of both branches. the lcx then continues posteriorly as a small caliber vessel OM1 moderate caliber vessel with moderate ostial lesion but only luminal irregularities beyond OM2 moderate caliber vessel with high grade ostial lesion. the vessel then continues on with only mild to moderate intraluminal plaqueing Right Coronary large caliber vessel of normal origin continue posteriorly in the av groove. in its proximal segment prior to the acute margin the is an eccentric 60-7- large caliber vessel of normnal origin which in its proximal segment prior to the acute margin there is an eccetric 60-70% lesion at the origin of a right ventricular brtanch [facility] [address] [place] [address] INVASIVE PROCEDURE REPORT Name: SHANTI MAHAN Room #: 209-P [facility] IN M.R.#: [id number] Admission: 08/14/19 Attend Phys: Fletcher Benson, Discharge: 08/22/19 Date of : 52 Report #: [id number] R PDA moderate caliber vessel with subtotal stenosis in its proximal third. it then reconstitute as it tapers toward the lv apex with mild to moderate luminal irregularities Left Ventriculography Left Ventriculography was not performed. Hemodynamics The aortic pressure is 137/76 mmHg with a mean of 99 mmHg. The left ventricular pressure is 160/5 mmHg with a mean of mmHg. The left ventricular end diastolic pressure is 28 mmHg. Conclusion 1, coronary artery disease severe 3 vessel 2. abnormal hemodynamics wih elevated LVEDP Recommendations Cardiac Risk Reduction Program CABG <ELECTRONICALLY SIGNED> By: Paulino Arechiga MD 09/06/19205 5 5 Paulino Arechiga MD /INF
== END 2019-08-22 18:53 | DRG 280 ==
LOC: ER 13:25 → ICU 16:35 → 2N 16:59 → ICU 16:59 → 2N 08-19 15:58
PROVIDERS: Emergency Medicine Emergency Medical Services; Physician Assistant; ADMIT Internal Medicine
PROC: 4A023N7 Measurement of Cardiac Sampling and Pressure, Left Heart, Percutaneous Approach (ICD-10-PCS; principal; 2019-08-18)
PROC: B2111ZZ Fluoroscopy of Multiple Coronary Arteries using Low Osmolar Contrast (ICD-10-PCS; principal; 2019-08-18)
DX: I21.4 Non-ST elevation (NSTEMI) myocardial infarction (principal); N17.0 Acute kidney failure with tubular necrosis; G92 Toxic encephalopathy; J69.0 Pneumonitis due to inhalation of food and vomit; F10.231 Alcohol dependence with withdrawal delirium; M62.82 Rhabdomyolysis; E44.0 Moderate protein-calorie malnutrition; G40.89 Other seizures; I10 Essential (primary) hypertension; E87.6 Hypokalemia; E11.649 Type 2 diabetes mellitus with hypoglycemia without coma; L89.150 Pressure ulcer of sacral region, unstageable; K75.9 Inflammatory liver disease, unspecified; E83.39 Other disorders of phosphorus metabolism; F32.9 Major depressive disorder, single episode, unspecified; E78.5 Hyperlipidemia, unspecified; K21.9 Gastro-esophageal reflux disease without esophagitis; I25.10 Atherosclerotic heart disease of native coronary artery without angina pectoris; R13.10 Dysphagia, unspecified; Z79.899 Other long term (current) drug therapy; Z79.84 Long term (current) use of oral hypoglycemic drugs; Z87.891 Personal history of nicotine dependence; Z82.49 Family history of ischemic heart disease and other diseases of the circulatory system; Z68.23 Body mass index [BMI] 23.0-23.9, adult; Z79.4 Long term (current) use of insulin; Z03.818 Encounter for observation for suspected exposure to other biological agents ruled out
CPT/HCPCS: 10078; 10081; 10203

== ENCOUNTER 2019-08-22 15:21 | Inpatient (IN) | payer OTHER ==
[~2019-08-22] VITALS: Ht 175.3 cm; Wt 61.3 kg
--- NOTE | ~2019-08-22 | HC ---
[facility] [place] [address] CONSULTATION Name: SHANTI MAHAN Room #: 505-P [facility] IN M.R.#: [id number] Admission: 08/22/19 Attend Phys: Zach Fischer MD Discharge: Date of : 52 Report #: [id number] THIS REPORT FOR: cc: ROGERS - Family physician unknown ROGERS - Family physician unknown David De Souza PhD ~ CC: Zach MCCLOUD unknown DATE OF SERVICE: 09/02/2019 BEHAVIORAL STATUS EXAM. ATTENDING PHYSICIAN: Zach Fischer MD JEWEL DIAMETER GAUGER: David De Souza, PhD CLINICAL PRESENTATION: The patient is a 68-year-old male admitted to the [facility] Rehabilitation Unit for comprehensive inpatient rehabilitation program to improve functional mobility, activities of daily living and self-care and mental status secondary to acute metabolic encephalopathy. He was initially admitted to the [facility] on 08/14/2019 in an unresponsive state, noted to be hypoglycemic. Subsequent to his medical treatment, he was admitted for comprehensive inpatient rehabilitation program. His diagnostic assessment on admission to the rehabilitation unit was metabolic encephalopathy, non-ST elevation myocardial infarction, severe coronary artery disease and will need coronary artery bypass grafting at a later date, alcohol withdrawal and seizure, renal insufficiency, dysphagia, leukocytosis, unstageable sacral wound, leukocytosis stable with rhabdomyolysis, improved. A complete description of his medical condition and history along with medications can be found in his medical record. Neuropsychological consultation was requested to provide assistance in the assessment of cognitive and emotional status and to provide recommendations and services. Prior to this most recent medical event, the patient was living independently in his own home. He reported having had severe chest pain and a friend found him on the floor, subsequently calling 911. The patient has amnesia surrounding his early admission and treatment. He has 2 children with one child in the [place] area. 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 He is a high school graduate. 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 He is . TECHNIQUES UTILIZED: Clinical interview, review of medical records, staff consultation in behavioral observation, mini mental status exam 2 standard version, clock drawing and verbal fluency assessment (letter and category). [facility] [address] [place] [address] CONSULTATION Name: SHANTI MAHAN Room #: 505-P [facility] IN .R.#: [id number] Admission: 08/22/19 Attend Phys: Zach Fischer MD Discharge: Date of : 51 Report #: [id number] EXAMINATION FINDINGS: The patient was alert and cooperative with the assessment. He reported having had a heart attack as his reason for admission. There is no evidence of aphasia. His thoughts are logical and goal oriented. There is no evidence of thought disorder. He does not report auditory or visual hallucinations. He describes his symptoms to include memory, word finding, difficulty with sleep, poor appetite and anxiety. Decreased speed of processing is also reported. His performance on the MMSE 2 brief version was in the borderline range with a raw score of 13/16, which is at the 7th percentile and a T score at 35. He was 3/3 for initial registration, 3/5 for orientation to time, 5/[address] and 2/3 for immediate recall of 3 items after a brief time delay and distraction. Performance on the MMSE 2 standard version was 23/30, which is a T score of 33 and percentile rank of 4. He was 2/5 for serial sevens, 2/2 for naming, 1/1 for repetition, 3/3 for auditory comprehension, 1/1 for being able to read and follow single command. He could write a sentence. The patient was unable to copy a simple geometric design. The patient also could not draw a clock or set the hands at a designated time. Letter fluency was in the borderline range with a raw score of 12 and a T score of 32, which is at the 4th percentile. Category fluency was a raw score of 17, T score of 20 and percentile rank of less than 1. Overall, total fluency was a raw score of 29, T score 20, percentile rank of less than 1. The patient is presenting with ciyf-[id number] deficits in immediate recall and sustained concentration. Severe deficits are noted in visual spatial construction and executive functioning. Verbal fluency deficits are moderate to severe and also suggest executive dysfunction. The patient reports subjective anxiety and he also has a history of alcohol abuse. DIAGNOSTIC IMPRESSION: 1. Major neurocognitive disorder (dementia), unspecified, without behavior disorder - mild severity. 2. Alcohol use disorder - persistent. 3. Unspecified anxiety disorder. RECOMMENDATIONS: The patient will likely require assistance in the management of medication, finances and nutrition given neurocognitive deficits. Alcohol use should be discontinued. The patient may need treatment program to address alcohol treatment. Followup neuropsychological testing will be of benefit to clarify the severity of cognitive disorder approximately 2-3 months after discharge. [facility] [address] [place] [address] CONSULTATION Name: SHANTI MAHAN Room #: 505-P [facility] IN M.R.#: [id number] Admission: 08/22/19 Attend Phys: Zach Fischer MD Discharge: Date of : 52 Report #: [id number] Thank you very much for allowing me to provide the consultation on this patient. By: [id number] [id number] David De Souza, PhD /nt
[~2019-08-22 15:21] MED LIST changes: +ASPIR 8181 MG PO; +COREG3.125 MG PO; +ENOXAPARIN40 MG/0.1 SUBQ; +IMDUR 30 MG TAB30 M1 PO; +LIPITOR40 MG PO; +MUPIROCIN22 GM NASAL; +NOVOLOG100 UNIT/1 SUBQ; +SIMETHICON CHEW80 M1 PO; +SSD CREAM 1% 5050 GM TOP; +VITAMIN B-1100 M2 PO
[2019-08-22 19:20] VITALS: BP 97/53
--- NOTE | 2019-08-23 01:38 | NUR ---
PT WAS ADMITTED TO REHAB (505) FROM CCU (209) AT APPROX 1915 ON 08/22/2019. PT IS A&OX4. IS ON ROOM AIR. IS STABLE. WAS ORIENTED TO UNIT & ROOM. ADMISSIONS PACKET GIVEN & DISCUSSED. NEW ARM BAND PLACED. SCDS APPLIED. PT DENIES PAIN AT THIS TIME. HAS ULCER ON SACRUM. PICTURES TAKEN & PLACED IN CHART BY THIS NURSE. DRSG CHANGED. LABS & VITALS REVIEWED. ADMISSION ASSESSESSMENT & EDUCATION COMPLETED. PT IS TURNED Q2H. IS ABLE TO TURN, BUT NEEDS PROMPTING & WEDGE TO REMAIN ON SIDE. FALL PRECAUTIONS & HOURLY ROUNDING IMPLEMENTED. PT IS CURRENTLY SLEEPING. CALL LIGHT WITHIN REACH. PT ACROSS FROM NURSE'S STATION. PT VOICED THAT HE WOULD LIKE TO SPEAK WITH DOCTOR REGARDING CODE STATUS. WHISHES TO BE A DNR. ALSO VOICED GOAL TO STOP DRINKING. WILL CONTINUE TO MONITOR.
[2019-08-23 06:44] LABS: HEMOGLOBIN 12.9 gm/dL (14.0-18.0); MCH 32.1 pg (26.0-34.0); MCHC 33.9 g/dL (28.0-37.0); MCV 94.7 fL (80.0-100.0); RBC 4.02 mil/uL (4.50-6.00); RDW 13.9 % (10.5-14.5); WBC 10.9 thou/uL (4.0-11.0)
[2019-08-23 07:09] LABS: CALCIUM 8.4 mg/dL (8.5-10.1); CREATININE 0.9 mg/dL (0.7-1.3); POTASSIUM 3.9 mmol/L (3.5-5.1)
[2019-08-23 07:35] VITALS: BP 132/73
--- NOTE | 2019-08-23 07:37 | NUR ---
THIS NURSE CALLED CONSULTS. WAS UNABLE TO LEAVE MESSAGE FOR DR. GUPTA & DR. CORTÉS. WILL MAKE DAY SHIFT NURSE AWARE TO RETRY TO CONTACT.
--- NOTE | 2019-08-23 12:50 | NUR ---
Nutrition: pt admitted to rehab unit with acute metabolic encephalopathy following acute care stay with NSTEMI, hypoglycemia, ETOH withdrawal. PMH: ETOH, HTN, HLD, DM. Received consult related to malnutrition-defer dx. Pt was NPO x several days in the ICU and required PPN. Prior issues related to dysphagia-ST/GI followed but pt now on regular diet. Intake generally > 50% of meals. Dislikes some food items, educated on how to order and assisted with dinner. Enjoys the glucerna BID. BG 83-391 on SSI, metformin, glipizide. Carb controlled, heart healthy diet. Weights have been stable, pt reports UBW 150#. Consider low nutrition risk with interventions in place.
--- NOTE | 2019-08-23 14:13 | NUR ---
Case opened to follow for dc planing. Pt admitted to acute rehab yesterday after lengthy hospital course d/t enceph, NSTEMI, and ethol w/d. Mat Sewer spoke with the pt via phone. Cm role introduced along with discussion of possible dc planning needs. The pt indicates he lives alone in a ranch style home with 2 steps to enter and a flight down to his basement laundry facilities. He was driving and doing yard work prior to admission. He did utilize a cane and has a home cpap. He has hx of ethol abuse which has been increasing over the past few years. He is interested in sobriety and states he will need open heart surgery in the future. He is a DNR per his request and reports his son Nehemias to be his emergency contact. He is hoping to be able to return to indep living at [place]. HH referral and possible FWW may be needed at [place]. Will await team conference recommendations and f/u with the pt next week. Pt is eating a reg diet now with ensure supplements. His pcp is Dr Kei Leija;however he is retired so he will likely need to see one of his partners. He is being seen by psych and ID. Will follow along for possible HH and DME referrals. Ethol tx resources to be documented in his dc instructions.
[2019-08-23 14:22] VITALS: BP 132/73
--- NOTE | 2019-08-23 17:59 | NUR ---
ASSUMED CARES AT 0700. PT AWAKE, ALERT AND ORIENTED *4 BUT FORGETFUL. DENIES PAIN. BG ELEVATED AFTER LUNCH TO UPPER 300'S. PROVIDER INFORMED AND ORDERS RECEIVED. PT CONTINUES TO HAVE A SACRAL WOUND, CLEANED AND DRESSING CHANGED. REPOSITIONED Q2H. SEIZURE PRECAUTIONS IN PLACE. PT UP WITH 1 ASSIST, GB AND WALKER AND TOLERATED WELL. Q1H VISUAL CHECKS. CALL LIGHT WITHIN REACH. FALL PRECAUTIONS IN PLACE
[2019-08-23 19:35] VITALS: BP 113/65
--- NOTE | 2019-08-24 05:05 | NUR ---
SACRAL OPTIFOAM DRESSING IN PLACE. PATIENT RESTING ON SIDE OVERNIGHT. USING URINAL. LISPRO INSULIN AT FOR BLOOD SUGAR OF 213, EMILIA CRACKER SNACK. ASSISTED WITH PHONE TO CONTACT SON SO THAT FAMILY NOW KNOWS OF HIS MOVE TO REHAB AND THAT HIS CELL PHONE IS BEING UNCOPERATIVE
[2019-08-24 07:08] VITALS: BP 121/80
--- NOTE | 2019-08-24 13:30 | NUR ---
ASSUMED CARES AT 0700. PT AWAKE, ALERT AND ORIENTED*4. DENIES PAIN. VITALS REMAIN STABLE. BG WNL FOR PT TODAY, MANAGED PER NEW ORDER. WOUNDCARE TO SACRAL WOUND COMPLETED PER ORDER, PT ENCOURAGED TO SWITCH POSITION FREQUENTLY. 2000L FLUID RESTRICTION MAINTAINED. ORAL SORES TREATED WITH MAGIC MOUTH WASH PER ORDER. PT PARTICIPATED IN ALL THERAPIES AND TOLERATED WELL. Q1H VISUAL CHECK. CALL LIGHT WITHIN REACH. FALL PRECAUTIONS IN PLACE
[2019-08-24 14:50] VITALS: BP 106/59; BP 110/59; BP 74/56
[2019-08-24 15:05] VITALS: BP 96/54
[2019-08-24 20:03] VITALS: BP 94/60
--- NOTE | 2019-08-24 21:00 | NUR ---
PATIENT C/O SALTY FOOD AGGRAVATING MOUTH SORES, MAGIC MOUTHWASH SWABBED ON SORE AREAS HELPFUL. ASSISTED PATIENT COMMUNICATION WITH SON AND DAUGHTER BY LETTING THEM KNOW HIS ROOM AND PHONE NUMBER. HAS CLOTHES IN ROOM TO EXCHANGE FOR NEW SET WITH SON AUNDREA AT NOON AT THE ER ENTERANCE. PATIENT USING URINAL AT BEDSIDE, APPRECIATES PILLOWS AT BACK TO OFFLOAD HIS SACRAL SORE.
[2019-08-25 08:00] VITALS: BP 121/64
--- NOTE | 2019-08-25 09:43 | NUR ---
ASSUMED CARES AT 0700.REPORTS SLEPT GOOD WITH CPAP ON. PT AWAKE, ALERT AND ORIENTEDX4. DENIES PAIN. VITALS REMAIN STABLE. BG MONITOR. NO INSULIN OR MEDS GIVEN PO THIS AM. PT HAS BEEN ON NPO SINCE LAST NIGHT FOR EGD TODAY. PT UP AND PARTICIPATES WITH THERAPY. SIGNED CONSENT FOR EGD YESTERDAY. PT IS WORKING WITH OT NOW. WOUNDCARE TO SACRAL WOUND COMPLETED PER ORDER, PT ENCOURAGED TO SWITCH POSITION FREQUENTLY. 2000L FLUID RESTRICTION MAINTAINED. ORAL SORES TREATED WITH MAGIC MOUTH WASH PER ORDER. Q1H VISUAL CHECK. CALL LIGHT WITHIN REACH. FALL PRECAUTIONS IN PLACE.
--- NOTE | 2019-08-25 10:21 | NUR ---
ASSUMED CARES AT 0700.REPORTS DIDN'T SLEEP GOOD WITH CPAP ON. WANTS TO BE ON MELATONIN. WILL NOTIFY SARAH. PT AWAKE, ALERT AND ORIENTEDX4. DENIES PAIN. VITALS REMAIN STABLE. BG MONITOR. NO INSULIN OR MEDS GIVEN PO THIS AM. PT HAS BEEN ON NPO SINCE LAST NIGHT FOR EGD TODAY. PT UP AND PARTICIPATES WITH THERAPY. SIGNED CONSENT FOR EGD YESTERDAY. OT GAVE PT A SHOWER. WOUNDCARE TO SACRAL WOUND COMPLETED PER ORDER. PT ENCOURAGED TO SWITCH POSITION FREQUENTLY. PT IS ON LOW AIR LOSS MATTRESS. 2000L FLUID RESTRICTION MAINTAINED. ORAL SORES TREATED WITH MAGIC MOUTH WASH PER ORDER. PT IS RESTING IN BED AND WAITING FOR PHYSICAL THERAPIST. HIS GOAL TO HAVE EGD DONE TODAY. REPORTS HAS POOR APPETITE. REASESSMENT PER CHART. NOTICED PT HAS LARGE LIQUID STOOL YESTERDAY. Q1H VISUAL CHECK. CALL LIGHT WITHIN REACH. FALL PRECAUTIONS IN PLACE.
[2019-08-25 10:45] VITALS: BP 111/70
[2019-08-25 10:47] VITALS: BP 114/59
[2019-08-25 10:50] VITALS: BP 105/62
[2019-08-25 21:31] VITALS: BP 137/72
--- NOTE | 2019-08-26 00:29 | NUR ---
PT ASSESSMENT COMPLETED AND VSS. MEDS GIVEN ORDERED AND WELL TOLERATED. FALL PRECAUTIONS IN PLACE. PT REFUSED SCDS. MEDS FOR UPSET STOMACH HELPFUL. BG WNL. CPAP AND CONTINUES 02 SAT MONITOR ON AND WNL. SLEEPING WELL. WILL CONTINUE TO MONITOR FREQUENTLY.
--- NOTE | 2019-08-26 00:33 | NUR ---
PT REMINDED TO SLEEP ON HIS SIDE. DSG ON COCCYX DRY AND INTACT. WILL CONTINUE TO MONITOR. VOIDING MODERATE AMOUNT OF YELLOW URINE PER URINAL.
[2019-08-26 05:58] VITALS: BP 115/74
[2019-08-26 05:59] VITALS: BP 102/60
[2019-08-26 06:02] VITALS: BP 93/54
--- NOTE | 2019-08-26 06:09 | NUR ---
PT FEELS THAT THE SLEEP MEDICATION WAS HELPFUL. PT STATES THAT THE DOSE WAS THE RIGHT AMOUNT FOR HIM.
[2019-08-26 08:00] VITALS: BP 109/64
--- NOTE | 2019-08-26 12:55 | NUR ---
ASSUMED CARES AT 0700. PT DROWSY, ALERT AND ORIENTED*4. PT STATED THAT HE SLEPT VERY WELL LAST NIGHT BUT STILL FELL DROWSY AND SLEEPY. SHORT TEMPER/ EASILY ANGERED, HITTING THINGS WITH HIS WALKER AND THROWING STUFF. VITALS STABLE. DENIES PAIN. WOUND IN SACRUM CLEANED AND DRESSING CHANGED. PT ENCOURAGED TO CHANGE POSITIONS FREQUENTLY. 2000 FL RESTRICTION MAINTAINED. LIDOCAINE S&S ADMINISTERED FOR ORAL SORES, PT HAVING TROUBLE EATING SALTY FOOD IT ARENAS HIS TONGUE. PT UP WITH MIN ASSIST, GB AND WALKER AND TOLERATED WELL. Q1H VISUAL CHECK. CALL LIGHT WITHIN REACH. FALL PRECAUTIONS IN PLACE
[2019-08-26 21:53] VITALS: BP 117/64
--- NOTE | 2019-08-26 23:36 | NUR ---
PT ASSESSMENT COMPLETED AND VSS. MEDS GIVEN ORDERED AND WELL TOLERATED. DAY RN MENTIONED THAT PT WOKE UP VERY AGITATED AND REMAINED THAT WAY FOR SEVERAL HOURS. SHE MENTIONED THAT WE MAY WANT TO HOLD THE REMERON THIS EVENING. PT HAS TROUBLE SLEEPING BUT MAY NOT HAVE TOLERATED THE MEDICATION. CONTACTED [facility] AND EXPLAINED THE SITUATION. SHE AGREED THAT WE COULD HOLD THE MEDICATION AND GIVE TRAZODONE INSTEAD. GIVEN ORDERED. BG 49 THIS EVENING. PT WAS VERY ANXIOUS AND WANTED A SNACK TO TREAT HIS BG. GAVE PT A SNACK AND NOW BG IS 140. WILL CONTINUE TO MONITOR. PT COCCYX DSG INTACT. ASST WITH REPOSITION KEEPING PT OFF OF HIS COCCYX. REFUSED SCDS. CPAP ON WITH CONT 02 SAT MONITOR. WNL. SLEEPING WELL. WILL CONTINUE TO MONITOR FREQUENTLY.
[2019-08-27 10:06] VITALS: BP 119/66
--- NOTE | 2019-08-27 14:14 | NUR ---
ASSUMED CARE OF PT AT 0700. PT IS A&OX4, FORGETFUL, VITAL SIGNS ARE STABLE. ACCU CHECKS ACHS. COCCYX WOUND DRESSED PER ORDERS. IV REMOVED AT REQUEST OF PT. PT TURNED AND REPOSITIONED Q2H, LOW AIRLOSS MATTRESS IN PLACE. SEIZURE PRECAUTIONS IN PLACE. HR REGULAR, LUNG SOUND CLEAR, AND BOWEL SOUNDS ACTIVE. FALL PRECAUTIONS IN PLACE AND NURSING WILL CONTINUE TO MONITOR.
[2019-08-27 19:45] VITALS: BP 95/50
--- NOTE | 2019-08-27 23:05 | NUR ---
ASSUMED CARE OF PT AT 1915. PT IS A&OX4. IS ON ROOM AIR. REPORTS SORENESS AT COCCYX WOUND SITE. REPOSITIONING & PAIN MEDS ADMINISTERED. PT IS STABLE. IS ABLE TO TURN SELF IN BED. IS VERY MOBILE IN BED. THIS NURSE OBSERVED PATIENT SEVERAL TIMES TURN FROM [id number] WITHOUT ASSISTANCE WELL FLUFF OWN PILLOWS. PT ALSO GETS UP TO SIDE OF BED ON OWN & SITS MONGOLIAN STYLE IN BED. PT'S DINNER WAS IN FRONT OF HIM AT THE START OF THIS SHIFT. PT TOOK A COUPLE OF SPOONS OF VANILLA PUDDING, BUT DID NOT EAT ANYTHING ELSE. HOWEVER, PT REQUESTED YOGURT, MILK, & EMILIA CRACKERS. PT VOIDS PER URINAL. WEARS CPAP AT HS. ACCU CHECKS ACHS. SEIZURE PRECAUTIONS CONTINUED. DRSG TO COCCXY WOUND INTACT. LABS REVIEWED. VITALS ASSESSED. PT IS UP WITH 1 ASSIST, GB, WALKER. FALL PRECAUTIONS & HOURLY ROUNDING CONTINUED THIS SHIFT. NEAR NURSE STATION. BED ALARM ON. CALL LIGHT WITHIN REACH. WILL CONTINUE TO MONITOR.
[2019-08-28 04:42] LABS: ABSOLUTE NEUTROPHILS 3.9 thou/uL (1.4-8.2); BASOPHILS 0.9 % (0.0-2.0); EOSINOPHILS 1.2 % (0.0-3.0); HEMATOCRIT 38.6 % (42.0-52.0); LYMPHOCYTES 33.1 % (24.0-44.0); MCH 31.5 pg (26.0-34.0); MCHC 33.5 g/dL (28.0-37.0); MCV 93.9 fL (80.0-100.0); MONOCYTES 10.9 % (1.0-8.0); PLATELET COUNT 620 thou/uL (150-400); POLYS 53.9 % (36.0-66.0); RBC 4.11 mil/uL (4.50-6.00); RDW 14.3 % (10.5-14.5); WBC 7.3 thou/uL (4.0-11.0)
[2019-08-28 05:00] LABS: CALCIUM 8.7 mg/dL (8.5-10.1); MAGNESIUM 1.9 mg/dL (1.8-2.4); POTASSIUM 4.1 mmol/L (3.5-5.1)
--- NOTE | 2019-08-28 06:48 | NUR ---
PT IS REQUESTING TO HAVE PROTEIN SHAKES WITH ALL MEALS. PT IS NOT EATING MUCH IF AT ALL AT SOME MEALS. WILL COMMUNICATE INFORMATION TO DAY SHIFT NURSE. PT IS CURRENTLY SLEEPING IN BED. CALL LIGHT WITHIN REACH. WILL CONTINUE TO MONITOR.
[2019-08-28 08:06] VITALS: BP 124/63
--- NOTE | 2019-08-28 10:18 | P ---
[facility] [place] [address] PROCEDURE REPORT Name: SHANTI MAHAN Room #: 505-P [facility] IN M.R.#: [id number] Admission: 08/22/19 Attend Phys: Zach Fischer MD Discharge: Date of : 51 Report #: [id number] THIS REPORT FOR: cc: FAM - Family physician unknown FAM - Family physician unknown Wan Hays MD ~ CC: Dariusz Fischer [facility] unknown DATE OF SERVICE: 08/25/2019 PROCEDURE PERFORMED: Upper endoscopy with biopsies. HISTORY OF PRESENT ILLNESS: The patient is a 68-year-old male with reflux, recent history of dysphagia, actually had an abnormal video swallow, but a repeat video swallow was normal. He has been on PPI therapy. He does report significant improvement in his heartburn symptoms. Denies any dysphagia at this time. No previous history of upper endoscopy. Plan is for EGD. DESCRIPTION OF PROCEDURE: The risks and benefits of the procedure were explained to the patient, those risks including but not limited to bleeding, perforation and the risk of sedation. He understood these risks and gave informed consent. Sedation was given using propofol per Anesthesia. Next, using a standard Olympus upper endoscope, the scope was placed in the patient's mouth and advanced under direct vision through the esophagus, stomach and into the second portion of the duodenum. The larynx was normal in appearance. The upper and mid esophagus was normal; however, in the distal esophagus, significant grade C erosive esophagitis was noted. No evidence of bleeding. Upon entering the stomach, a small hiatal hernia was noted. Overall, the gastric mucosa was normal. The pylorus was normal and patent. In the duodenal bulb, an 8 mm clean white based ulcer was noted. No evidence of bleeding. Mild duodenitis was noticed also in the bulb and first portion. The second portion of the duodenum was normal. The scope was then brought back up into the patient's stomach and biopsies were obtained to rule out H. pylori. The scope was then withdrawn and the procedure terminated. The patient tolerated the procedure well. IMPRESSION: 1. Grade C erosive esophagitis. 2. Small hiatal hernia. 3. Duodenal ulcer with duodenitis. RECOMMENDATIONS: 1. Await biopsy results. [address] [address] PROCEDURE REPORT Name: SHANTI MAHAN Room #: 505-P [facility] IN ..#: [id number] Admission: 08/22/19 Attend Phys: Zach Fischer MD Discharge: Date of : 52 Report #: [id number] 2. Recommend daily PPI therapy long-term. 3. Would recommend repeating upper endoscopy in approximately 6-8 weeks' time to rule out the possibility of Ross's esophagus. Thank you for allowing me to participate in his care. <ELECTRONICALLY SIGNED> By: Wan Hays MD 08/28/19 1018 1339 20 Wan Hays, /fabienne
--- NOTE | 2019-08-28 15:27 | NUR ---
ASSUMED CARE OF PT AT 0700. PT IS A&OX4 AND VITAL SIGNS ARE STABLE. PT REPORTS PAIN IN BACK, MANAGED WITH PO MEDICATIONS AND KPAD. DRESSING TO COCCYX CHANGED PER ORDERS. PT UPSET THIS MORNING THAT SUPPLEMENT DRINKS HAVE NOT BEEN ON MEAL TRAYS. REVIEWED NOTE FROM DIETARY, INDICATED THAT SUPPLEMENT WAS TO BE ORDERED. PT EATING <50% AT ALL MEALS. ACCU CHECKS ACHS AND MANAGED WITH PO MEDICAITONS AND ORDERED INSULIN. TURNS INDEPENDENTLY AND CALLS FOR ASSISTANCE NEEDED. STATED THAT HE WOULD TALK TO FAMILY TODAY AND THAT HE DID NOT NEED NURSING TO CALL FAMILY AT THIS TIME. FALL PRECAUTIONS IN PLACE AND NURSING WILL CONTINUE TO MONITOR.
[2019-08-28 20:13] VITALS: BP 101/59
--- NOTE | 2019-08-29 01:48 | NUR ---
ASSUMED CARE AROUND 1900, PT A&O X 4 FORGETFUL AT TIMES. NO ACUTE CHANGES NOTED. VSS, O2 ON RA, CPAP AT HS. PT DENIES ANY PAIN OR DISCOMFORT, HEATING PAD TO BACK, DRESSING TO SACRAL WOUND C/D/I. MEDS GIVEN PER ORDERS, BG 92 AT HS, NO SS NEEDED. PT ASLEEP, CALL LIGHT WITHIN REACH, WILL CONTINUE TO MONITOR PER POC.
[2019-08-29 08:40] VITALS: BP 116/72
--- NOTE | 2019-08-29 12:46 | NUR ---
team meeting, recommendation: dc 09/05/2019, fww. will need assist with bills and pills and wound care at home. discuss with pt and family rt amount of assistance family can provide hh vs snf. will cont following as needed for dc needs.
--- NOTE | 2019-08-29 14:47 | NUR ---
ASSUMED CARE OF PT AT 0700. PT IS A&OX4 AND VITAL SIGNS ARE STABLE. PT REPORTS PAIN 6/10 IN SACRUM, MANAGED WITH PO MEDICATIONS. PARTICIPATED IN SCHEDULED THERPIES. ACCU CHECKS ACHS AND MANAGED WITH PO MEDICATIONS AND INSULIN PER ORDERS. WOUND DRESSING CHANGED PER ORDERS. CONTINUES TO HAVE POOR DIETARY INTAKE, SUPPLEMENT ORDERS INCREASED. TURNS INDEPENDENTLY IN BED AND REPOSITIONS IN CHAIR. EXPRESSED CONCERN ABOUT DISCHARGE HOME DUE TO FEELING WEAK AND HAVING MULTIPLE MEDICATIONS. ORTHOSTATIC B/P ORDERED. REPORTS WATERY STOOL, DENIES ABDOMINAL DISCOMFORT, BOWEL SOUNDS ACTIVE IN ALL QUADRANTS. FALL PRECAUTIONS IN PLACE AND NURSING WILL CONTINUE TO MONITOR.
[2019-08-29 19:03] VITALS: BP 112/62
--- NOTE | 2019-08-30 02:50 | NUR ---
assumed care at approx 1900 evening 08/28. pt alert and oriented x4, appropriate and cooperative. pt sitting up in recliner at change of shift and assisted into bed. pt took hs meds with water tolerating well. pt voiding per urinal. pt appears to be sleeping soundly with hourly rounding. bed alarm on and call light in reach. will continue to monitor.
[2019-08-30 07:15] VITALS: BP 114/64
--- NOTE | 2019-08-30 10:08 | PATH ---
[facility] [address] [place] [address] PATHOLOGY RPT PROCEDURE Name: KEVEN MAHAN Room #: 505-P ADM IN M.R.#: [id number] Admission: 08/22/19 Date of : 52 Discharge: Report #: [id number] Path Case #: [id number] LCA Accession Number: [id number] . 01 Material submitted: . stomach - GASTRIC BX . 01 Clinical history: . Pre-op diagnosis: Reflux; dysphagia; aspiration Post-op diagnosis: Duodenal ulcer; hiatal hernia; esophagitis R/O H. pylori; acute metabolic encephalopathy . 02 Diagnosis: Gastric mucosa, gastric R/O H. pylori, endoscopic biopsy: - Mild reactive gastropathy. - Negative for intestinal metaplasia or atrophy. - Negative for Helicobacter pylori (properly controlled immunohistochemical stain performed). (IUV:diamond;08/29/2019) S 08/29/2019 1331 Local . 02 Electronically signed: . Karuna De La Rosa MD, Pathologist NPI- [id number] . 01 Gross description: . The specimen is received in formalin, labeled "Keven Mahan, gastric biopsy, R/O H. pylori". Received are three segments of pale smith soft tissue ranging in size from 0.3 to 0.6 cm in maximum dimensions. The specimen is submitted entirely in cassette A1. (CAA; 08/25/2019) QAC/QA 08/25/2019 1643 Local . 02 Pathologist provided ICD-10: K31.9 . 02 CPT . 907742, [id number] Specimen Comment: A courtesy copy of this report has been sent to [phone] Specimen Comment: [id number] Specimen Comment: Report sent to / DR MENDES Specimen Comment: A duplicate report has been generated due to demographic updates. Performed at: [address], [place] [id number] [address] [address] PATHOLOGY RPT PROCEDURE Name: MELISSA MAHANWINNIE Kumar Room #: 505-P [facility] IN M.R.#: [id number] Admission: 08/22/19 Date of : 52 Discharge: Report #: [id number] Path Case #: [id number] MD William Willoughby MD Phone: [phone] Performed at: [address] [id number] MD Karuna De La Rosa MD Phone: [phone]
--- NOTE | 2019-08-30 15:40 | NUR ---
ASSUMED CARE OF PT AT 0700. PT IS A&OX4 AND VITAL SIGNS ARE STABLE. PT REPORTS CONTINUED SACRAL PAIN, NEW ORDERS OBTAINED FOR TOPICAL OINTMENT TO ASSIT WITH PAIN MANAGEMENT. PT INDEPENDENTLY TURNS AND REPOSITIONS AND CALLS FOR ASSISTANCE NEEDED. SACRAL DRESSING CHANGED PER ORDERS. ACCU CHECKS ACHS AND MANAGED WITH PO MEDCIAITONS AND INSULIN PER ORDERS. FALL PRECAUTIONS IN PLACE AND NURSING WILL CONTINUE TO MONITOR.
[2019-08-30 21:27] VITALS: BP 111/67
--- NOTE | 2019-08-31 01:07 | NUR ---
ASSUMED CARE AROUND 0, PT A&O X 3, NO ACUTE CHANGES NOTED. VSS, O2 ON RA, CPAP AT HS. PT C/O SACRAL WOUND PAIN, RELIEVED WITH PRN NORCO AND MICHAEL SILVERDINE CREAM APPLIED TO AREA. PT ALSO RECEIVED PRN ATIVAN FOR ANXIETY. TOLERATED MEDS WHOLE WITH WATER. BG ACHS WITH SS NEEDED. CONTINENT OF B&B, USES URINAL AND BR, BM 08/29/19, ON MICHAEL MIRALAX AND COLACE. PT RESTING, CALL LIGHT WITHIN REACH, WILL CONTINUE TO MONITOR PER POC.
[2019-08-31 08:00] VITALS: BP 116/72
--- NOTE | 2019-08-31 13:57 | NUR ---
cm returned missed call from daughter merle. education on team this week and dc recommendation. sent [employer] website for hh choice and pd. education that pd is not covered by insurance. 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 education on skilled rehab, referral to be sent to [facility] for short term rehab. " i will speak with brother and family and get back to you on which way to go"/daughter merle. anticipated dc on 09/05/2019.
--- NOTE | 2019-08-31 14:07 | NUR ---
ASSUMED CARES AT 0700. PT AWAKE, ALERT AND ORIENTED*4. VITALS REMAIN STABLE C/O SACRAL WOUND PAIN, PAIN MEDICATION ADMINISTERED. WOUND CLEANED, SILVERDENE/MORPHINE ADMINISTERED AND DRESSING CHANGED. PT ENOURAGED TO CHANGE POSITIONS Q2H. PT PARTICIPATED IN ALL THERAPIES AND TOLERATED WELL. Q1H VISUAL CHECKS. CALL LIGHT WITHIN REACH. FALL PRECAUTIONS IN PLACE
--- NOTE | 2019-08-31 14:54 | NUR ---
FAXED [facility] RECEIVED CONFIRMATION AND LEFT MSG WITH IRA IN ADM PT TO DC 09/04 FROM REHAB. DP TO FOLLOW.
[2019-08-31 19:40] VITALS: BP 109/63
--- NOTE | 2019-09-01 01:03 | NUR ---
TURNING TO SIDE ENCOURAGED FOR HEALING OF, AND PAIN FROM, SACRAL ULCER. SILVADENE CREAM AND OPTIFOAM DRESSING CHANGED. PAIN MED, ATIVAN, AND BENADRYL AT HS, APPEARS TO BE SLEEPING NOW, HAS ASKED TO BE WAKEN FOR PAIN MED EARLY WITH THE IDEA OF STAYING ON TOP OF THE PAIN AND HAVING ONE SOON BEFORE THERAPY. UNHAPPY THAT HE IS NOT GOING HOME SOON AND IS GOING ACROSS THE STREET FOR A WHILE, HE HAS AT LEAST ONE DAUGHTER WHO MIGHT HELP HIM AT HOME.
[2019-09-01 06:04] LABS: ALBUMIN 2.7 g/dL (3.4-5.0); SGOT 25 U/L (15-37); SGPT 24 U/L (30-65); TOTAL BILIRUBIN 0.3 mg/dL (0.2-1.0); TOTAL PROTEIN 6.5 g/dL (6.4-8.2)
[2019-09-01 06:06] LABS: DIRECT BILIRUBIN < 0.1 mg/dL (<0.1-0.2)
[2019-09-01 08:00] VITALS: BP 107/64
--- NOTE | 2019-09-01 13:33 | NUR ---
ASSUMED CARES AT 0700. PT AWAKE, ALERT AND ORIENTED*4. PT KIM, STATED THAT HE JUST GOT BAD NEWS ABOUT GOING TO [place] INSTEAD OF DC TO HOME. C/O PAIN AROUND SACRAL WOUND, PAIN MEDICATION ADMINISTERED PER ORDER. VITALS REMAIN STABLE. ATIVAN ADMINISTERED THIS AM FOR ANXIETY. PT UP WITH 1 CONTACT GUARD ASSIST, GB AND WALKER. Q1H VISUAL CHECKS. CALL LIGHT WITHIN REACH. FALL PRECAUTIONS IN PLACE
--- NOTE | 2019-09-01 17:09 | H ---
[facility] [place] [address] HISTORY AND PHYSICAL Name: SHANTI MAHAN Room #: 505-P ADM IN M.R.#: [id number] Admission: 08/22/19 Attend Phys: Zach Fischer MD Discharge: Date of : 52 Report #: [id number] THIS REPORT FOR: cc: [facility] - Family physician unknown FAM - Family physician unknown Zach Fischer MD ~ CC: Zach MCCLOUD unknown DATE OF SERVICE: 08/22/2019 HISTORY AND PHYSICAL AND POST-ADMISSION PHYSICIAN EVALUATION HISTORY OF PRESENT ILLNESS: The patient is a 68-year-old white male who was originally admitted to [facility] on 08/14/2019 unresponsive, noted to be hypoglycemic. He was noted to have acute metabolic encephalopathy. This was thought to be due to a combination of alcohol withdrawal and decreased blood sugar. The patient was also noted to have some acute renal insufficiency with rhabdomyolysis. He was noted to have a non-ST elevation VT. He has 3-vessel coronary artery disease noted to be severe and the plan is for him to have coronary artery bypass grafting surgery at a later date. He has been seen by Gastroenterology regarding dysphagia and aspiration and was placed on a nectar thickened liquid diet. Gastroenterology was involved. He was noted to have a toxic metabolic encephalopathy, appears to be gradually improving. Gastroenterology recommended an EGD at some point for history of reflex, but at this point, he appears to be doing better in that regard. Speech therapy now has him on a regular diet with thin liquids. PAST MEDICAL HISTORY: Includes hypertension, elevated lipids, depression. MEDICATIONS: Please see the full medication listing. ALLERGIES: No known drug allergies. SOCIAL HISTORY: He lives in a house alone, flight of steps to the basement where there is a laundry. Premorbid cane ambulator. Son is a dentist. There is a daughter that apparently lives 100 miles south of here. He thinks the daughter could assist if specifically asked to. REVIEW OF SYSTEMS: No current complaints of chest pain, shortness of breath or abdominal discomfort. PHYSICAL EXAMINATION: GENERAL: A 68-year-old white male in no obvious distress. VITAL SIGNS: Last recorded temperature 98.2, pulse 78, respirations 18, and blood pressure 97/53. [address] [address] HISTORY AND PHYSICAL Name: SHANTI MAHAN Room #: 505-P [facility] IN ..#: [id number] Admission: 08/22/19 Attend Phys: Zach Fischer MD Discharge: Date of : 52 Report #: [id number] NEUROLOGIC: The patient is alert. He is pleasant. He is cooperative. HEENT: Appeared to be benign. Facies are symmetric. CHEST: Sounded clear to auscultation. CARDIOVASCULAR: Regular rate and rhythm. ABDOMEN: Bowel sounds positive, nontender. There is some latency to his responses, but he does follow basic 1 step commands. EXTREMITIES: He has functional range of motion of both upper extremities with strength grade 4-/5. DTRs are trace to 1. Lower extremities, no focal calf swelling, functional range of motion, strength is grade 4-/5. DTRs are trace to 1. He has been needing some assistance as far as basic mobility skills mod assist sit to stand, mod assist, ambulated short distance with a front-wheeled walker. He has been noted to have severe cognitive deficits prior to his rehabilitation stay as per speech therapy evaluations during his acute hospitalization. ASSESSMENT: A 68-year-old white male with the following problem list: 1. Metabolic encephalopathy. 2. Non-ST elevation myocardial infarction. 3. Severe coronary artery disease will need coronary artery bypass grafting at a later date. 4. Alcohol withdrawal/seizure. 5. Renal insufficiency. 6. Dysphagia, now on thin liquids. 7. Leukocytosis. 8. Unstageable sacral wound. Wound care has been involved. 9. Leukocytosis is stable and his rhabdomyolysis has improved. PLAN: The patient has been admitted for acute in-hospital inpatient rehabilitation. From a post-admission physician evaluation perspective, there are no relevant changes since the preadmission screening. Please see the review of prior and current medical and functional conditions and comorbidities. Please see the patient's previous and current functional status. As far as risk of complications, the patient has multiple medical comorbidities as noted above. Initial plan of care involves the interdisciplinary acute inpatient rehabilitation program. Measurable functional goals would be for him to become modified independent with transfers, mobility, ADLs and cognition, so that he can hopefully return back to his prior living situation. Prognosis is reasonably good with estimated length of stay probably at least 7-14 days pending progress. Potential barriers would include his multiple medical comorbidities and decreased functional status. The patient meets diagnostic criteria for an acute in-hospital inpatient rehabilitation stay. He meets the medical necessity criteria. We will have the [address] [address] HISTORY AND PHYSICAL Name: SHANTI MAHAN Room #: 505-P [facility] IN M.R.#: [id number] Admission: 08/22/19 Attend Phys: Zach Fischer MD Discharge: Date of : 52 Report #: [id number] multiple marketing consultant physicians continue to follow. He does have the tolerance for therapies and has appropriate discharge goals back to the home setting. <ELECTRONICALLY SIGNED> By: Zach Fischer MD 09/01/19 1709 0915 0935 Zach Fischer MD /nt
--- NOTE | 2019-09-01 17:09 | H ---
[facility] [place] [address] HISTORY AND PHYSICAL Name: SHANTI MAHAN Room #: 505-P ADM IN M.R.#: [id number] Admission: 08/22/19 Attend Phys: Zach Fischer MD Discharge: Date of : 52 Report #: [id number] THIS REPORT FOR: cc: [facility] - Family physician unknown [facility] - Family physician unknown Zach Fischer MD ~ CC: Zach MCCLOUD unknown DATE OF SERVICE: 08/22/2019 PROGRESS NOTE/OVERALL PLAN OF CARE The patient was seen back today in followup. He is in no distress. He has just returned post the EGD. Please see the documentation with the progress note as noted. He is gradually progressing with sit to stand, contact guard assistance and min assist 75 feet with front-wheeled walker with some ataxia. Lower body dressing is contact guard assistance. He is being monitored regarding orthostatic precautions. Noted that the EGD did show some esophagitis. The patient does have moderate cognitive deficits with naendgfn-ks-lucujm memory deficits. ASSESSMENT: 1. Metabolic encephalopathy. 2. Non-ST elevation myocardial infarction. 3. Severe coronary artery disease. 4. Alcohol withdrawal with seizure. 5. Acute renal insufficiency. 6. Dysphagia. Noted to have some esophagitis per EGD. 7. Unstageable sacral wound. PLAN: The overall plan of care is based on the preadmission screen, post-admission physician evaluation and information garnered from therapy assessments. 1. Estimated length of stay is probably 5-7 days pending progress. 2. Medical prognosis is reasonably good. 3. Anticipated interventions includes the interdisciplinary acute inpatient rehabilitation program. 4. Anticipated functional outcomes would be for the patient to become modified independent at least at the walker level with mobility and ADLs and to improve as far as overall cognition, so that he can hopefully return back to the prior living situation. 5. Discharge destination would be back to his prior living situation, which would include living in a house alone with family involved. 6. Expected therapy by discipline includes PT, OT and speech 1 hour per day [address] [address] HISTORY AND PHYSICAL Name: ROCTONYSHANTI K Room #: 505-P [facility] IN .R.#: [id number] Admission: 08/22/19 Attend Phys: Zach Fischer MD Discharge: Date of : 52 Report #: [id number] each five days a week throughout the duration of the acute inpatient rehabilitation stay. <ELECTRONICALLY SIGNED> By: Zach Fischer MD 09/01/19 1709 1611 1625 Zach Fischer MD /nt
[2019-09-01 21:45] VITALS: BP 115/68
--- NOTE | 2019-09-02 02:34 | NUR ---
ASSUMED CARE AROUND 1900, PT A&O X 3, NO ACUTE CHANGES NOTED. VSS, O2 ON RA, CPAP WORN AT HS. PT C/O PAIN RELIEVED WITH PRN NORCO, ALSO RECEIVED MICHAEL SILVERDINE/MORPHINE TOPICAL CREAM TO SACRAL WOUND. MEDS GIVEN PER ORDERS, TOLERATED WELL. BG ACHS WITH SS NEEDED. CONTINENT OF B&B, USES URINAL, BM 08/31/19. DAILY WEIGHT. PT SLEEPING, CALL LIGHT WITHIN REACH, WILL CONTINUE TO MONITOR PER POC.
[2019-09-02 07:24] VITALS: BP 118/75
--- NOTE | 2019-09-02 10:28 | NUR ---
ASSUMED CARE AT 0700. PATIENT IS ALERT AND ORIENTED X3. PATIENT CAO'S, SHELLFISH GROWER ARE EQUAL. LUNGS ARE CLEAR AND DEMINISHED. ABD IS SOFT WITH BSX4. PATIENT IS MOD ASSIST WITH WALKER FOR TRANSFERS. PATIENT HAS SORE ON HIS COCCYX. TX COMPLETED WITH SILVADEME CREAM AND MS04. OPTIFOAM APPLIED. UP IN THE CHAIR FOR MEALS. FALL AND SAFETY PROTOCOLS IN PLACE. C/O PAIN IN HIS COCCYX AREA. C/O ANXIETY. MEDICATED WITH PRN PAIN MED AND PRN ANTIANXIETY MED. CONTINUES TO PROGRESS TOWARDS D/C GOALS. WILL CONTINUE TO MONITER.
[2019-09-02 19:40] VITALS: BP 118/75
--- NOTE | 2019-09-03 05:00 | NUR ---
APRECIATES PAIN MEDS Q 4 HOURS AND SILVADENE/MS TO SACRUM FOR PAIN. THANKED STAFF FOR REMINDER TO ROLL ON SIDE. USING URINAL IN BED, STANDING TO VOID THIS MORNING.
[2019-09-03 08:10] VITALS: BP 100/60
--- NOTE | 2019-09-03 13:28 | NUR ---
ASSUMED CARE AT 0700, PT A&O X 3, NO ACUTE DISTRESS NOTED. VSS, O2 ON RA CPCP AT HS. PT C/O PAIN TO SACRAL WOUND RELIEVED WITH PRN NORCO AND MICHAEL SILVERDINE/MS TOPICAL CREAM TO AREA. ALSO RECEIVED PRN ATIVAN FOR ANXIETY. MEDS GIVEN PER ORDERS, TOLERATED WELL. BG ACHS WITH SS NEEDED. CONTINENT OF B&B, USES URINAL, BM 09/02/19. PT SITTING IN RECLINER, CALL LIGHT WITHIN REACH, WILL CONTINUE TO MONITOR PER POC.
[2019-09-03 20:35] VITALS: BP 119/64
--- NOTE | 2019-09-04 02:42 | NUR ---
assumed care at approx 1900 evening 09/02. pt sitting up in recliner at change of shift resting and watching tv. pt alert and oriented x4. pt assisted to bathroom to void before hs. pt also voiding per urinal at bedside. pt took hs meds with water tolerating well. pt wearing cpap at present and appears to be sleeping soundly. bed alarm on and call light in reach. will continue to monitor.
[2019-09-04 04:12] VITALS: BP 104/72
[2019-09-04 07:07] VITALS: BP 108/62
--- NOTE | 2019-09-04 11:49 | NUR ---
otto spoke with travis via phone call, rt 24hr/sup with [facility] tomorrow " well are you asking or telling, my girlfriend can help me, i will call her"/yvan.
--- NOTE | 2019-09-04 14:44 | NUR ---
ASSUMED CARES AT 0700. PT AWAKE, ALERT AND ORIENTED *4 BUT FORGETFUL. C/O PAIN AROUND SACRAL WOUND, PAIN MEDICATION ADMINISTERED NEEDED. WOUNDCARE TO SACRAL WOUND COMPLETED, WOUNDCARE CONSULTED. FLUID REST. MAINTAINED. PT UP WITH 1 MIN ASSIST, GB AND WALKER. REFUSED PHYSICAL THERAPY THIS AFTERNOON. Q1H VISUAL CHECKS. CALL LIGHT WITHIN REACH. FALL PRECAUTIONS IN PLACE
[2019-09-04 19:20] VITALS: BP 121/64
--- NOTE | 2019-09-05 02:23 | NUR ---
ASSUMED CARE AROUND 1900, PT A&O X 3, NO ACUTE DISTRESS DURING SHIFT. VSS, O2 ON RA, CPAP AT HS. PT C/O PAIN TO SACRAL WOUND RELIEVED WITH PRN NORCO, WC TO SACRAL WOUND WITH SILVERDINE/MS. BG ACHS, BG 68 AT HS GIVEN APPLEJUICE AND SNACK. PT CONTINENT OF B&B, USES URINAL TO VOID, BM 09/02/19, REFUSED MIRALAX. PT ASLEEP, CALL LIGHT WITHIN REACH, WILL CONTINUE TO MONITOR PER POC.
[2019-09-05 07:22] LABS: ABSOLUTE NEUTROPHILS 3.5 thou/uL (1.4-8.2); BASOPHILS 0.9 % (0.0-2.0); EOSINOPHILS 1.9 % (0.0-3.0); HEMATOCRIT 36.1 % (42.0-52.0); HEMOGLOBIN 12.4 gm/dL (14.0-18.0); LYMPHOCYTES 32.2 % (24.0-44.0); MCH 32.1 pg (26.0-34.0); MCHC 34.4 g/dL (28.0-37.0); MCV 93.2 fL (80.0-100.0); MONOCYTES 11.1 % (1.0-8.0); PLATELET COUNT 424 thou/uL (150-400); POLYS 53.9 % (36.0-66.0); RBC 3.88 mil/uL (4.50-6.00); WBC 6.6 thou/uL (4.0-11.0)
[2019-09-05 07:29] LABS: CALCIUM 8.4 mg/dL (8.5-10.1); MAGNESIUM 1.7 mg/dL (1.8-2.4); POTASSIUM 4.1 mmol/L (3.5-5.1)
[2019-09-05 07:30] VITALS: BP 109/69
--- NOTE | 2019-09-05 08:04 | NUR ---
chart copy ordered and requested, 4s us will complete chart. pt will be able to transport via wheel chair van. [id number] completed to be sent in the chart copy. bedside nurse to call report to [phone].
[2019-09-05 09:07] VITALS: BP 109/69
[2019-09-05] MEDS ORDERED: COLACE100 MG PO ×2 (10:54)
[2019-09-05] MEDS ORDERED: MIRALAX17 GM PO ×2 (10:54)
[2019-09-05] MEDS ORDERED: METFORMIN HCL500 MG PO ×2 (10:54)
[2019-09-05] MEDS ORDERED: PROTONIX 20 MG20 M1 PO ×2 (10:54)
--- NOTE | 2019-09-05 13:02 | NUR ---
PT DISCHARGING TODAY TO [facility] FAXED DC ORDERS/SUMMARY TO FACILITY SPOKE WITH IRA IN ADM SHE RECEIVED ORDERS AND ARRANGED TRANSPORT BY [facility] FOR 1400 TODAY. LEFT VOICEMAIL WITH BOTH DTR(OLAYINKA) AND SON (LIEN) OF DC AND TIME OF TRANSPORT. UNIT NOTIFIED AND CHART COPY PER US RN TO CALL REPORT TO [phone].
[2019-09-05] MEDS ORDERED: NORCO 5-325 TA1 EAC1 PO ×4 (13:21→13:37)
[2019-09-05] MEDS ORDERED: LORAZEPAM 0.50.5 MG PO ×2 (13:21)
[2019-09-05] MEDS ORDERED: ATIVAN0.5 M1 PO ×2 (13:37)
--- NOTE | 2019-09-05 14:44 | NUR ---
ASSUMED CARE OF PT AT 0715. PT IS A&OX4. IS ON ROOM AIR. IS STABLE. REPORTED PAIN AT COCCYX WOUND SITE THAT IS BEING MANAGED WITH MEDS & REPOSITIONING. DRSG TO BE CHANGED BY ANOTHER NURSE. CURRENT DRSG C/D/I. IS UP WITH 1 ASSIST, GB, WALKER. FALL PRECAUTIONS & HOURLY ROUNDING CONTINUED THIS SHIFT. PT IS TO DC TODAY TO [facility]ILL[facility]. LABS & VITALS REVIEWED. PT IS STABLE. WILL CONTINUE TO MONITOR.
--- NOTE | 2019-09-05 15:02 | NUR ---
PATIENT LEFT VIA MEDICAL TRANSPORTATION W/C TO [facility] SKILLED NSG. PATIENT LEFT WITH ALL OF HIS BELONGINGS AND D/C PAPERWORK, AND SCRIPTS FOR PRN PAIN MED, AND ANTIANXIETY MED.
== END 2019-09-05 14:52 | DRG 70 ==
PROVIDERS: Nurse Practitioner; Nurse Practitioner Family; ADMIT Physical Medicine & Rehabilitation
PROC: 5A09557 Assistance with Respiratory Ventilation, Greater than 96 Consecutive Hours, Continuous Positive Airway Pressure (ICD-10-PCS; principal; 2019-08-23)
PROC: 0DB38ZX Excision of Lower Esophagus, Via Natural or Artificial Opening Endoscopic, Diagnostic (ICD-10-PCS; 2019-08-25)
DX: G93.41 Metabolic encephalopathy (principal); I21.4 Non-ST elevation (NSTEMI) myocardial infarction; E44.0 Moderate protein-calorie malnutrition; Z68.1 Body mass index [BMI] 19.9 or less, adult; N17.9 Acute kidney failure, unspecified; G40.89 Other seizures; M62.82 Rhabdomyolysis; F10.239 Alcohol dependence with withdrawal, unspecified; I25.10 Atherosclerotic heart disease of native coronary artery without angina pectoris; R13.10 Dysphagia, unspecified; D72.829 Elevated white blood cell count, unspecified; E11.9 Type 2 diabetes mellitus without complications; I95.1 Orthostatic hypotension; I50.9 Heart failure, unspecified; K13.79 Other lesions of oral mucosa; L89.150 Pressure ulcer of sacral region, unstageable; R26.81 Unsteadiness on feet; Y90.9 Presence of alcohol in blood, level not specified; R53.81 Other malaise; K20.9 Esophagitis, unspecified; K44.9 Diaphragmatic hernia without obstruction or gangrene; K26.9 Duodenal ulcer, unspecified as acute or chronic, without hemorrhage or perforation; F43.21 Adjustment disorder with depressed mood; I11.0 Hypertensive heart disease with heart failure; K29.80 Duodenitis without bleeding; F01.50 Vascular dementia, unspecified severity, without behavioral disturbance, psychotic disturbance, mood disturbance, and anxiety; F41.9 Anxiety disorder, unspecified; Z95.1 Presence of aortocoronary bypass graft; Z87.891 Personal history of nicotine dependence
CPT/HCPCS: 10112; 62110; 62900; 70005

== ENCOUNTER 2019-09-30 12:58 | Emergency (ER) | payer OTHER ==
[~2019-09-30] VITALS: Ht 172.7 cm; Wt 68.0 kg
[~2019-09-30 12:58] MED LIST changes: +ATIVAN0.5 M1 PO; +COLACE100 MG PO; +LORAZEPAM 0.50.5 MG PO; +METFORMIN HCL500 MG PO; +MIRALAX17 GM PO; +NORCO 5-325 TA1 EAC1 PO; +PROTONIX 20 MG20 M1 PO
[2019-09-30 13:50] LABS: BASOPHILS 0.6 % (0.0-2.0); EOSINOPHILS 0.4 % (0.0-3.0); HEMATOCRIT 40.6 % (42.0-52.0); HEMOGLOBIN 13.8 gm/dL (14.0-18.0); LYMPHOCYTES 10.9 % (24.0-44.0); MCV 91.1 fL (80.0-100.0); MONOCYTES 8.5 % (1.0-8.0); PLATELET COUNT 443 thou/uL (150-400); POLYS 79.6 % (36.0-66.0); RBC 4.46 mil/uL (4.50-6.00); RDW 13.9 % (10.5-14.5); WBC 12.6 thou/uL (4.0-11.0)
[2019-09-30 13:59] LABS: CALCIUM 9.3 mg/dL (8.5-10.1); CREATININE 1.5 mg/dL (0.7-1.3); POTASSIUM 4.1 mmol/L (3.5-5.1)
[2019-09-30 14:00] LABS: URINE BILIRUBIN NEGATIVE (Negative); URINE BLOOD NEGATIVE (Negative); URINE CLARITY CLEAR; URINE COLOR YELLOW; URINE GLUCOSE-RANDOM* NEGATIVE (Negative); URINE KETONES 1+ (Negative); URINE LEUKOCYTES-REFLEX NEGATIVE (Negative); URINE NITRITE-REFLEX NEGATIVE (Negative); URINE PROTEIN (DIPSTICK) NEGATIVE (Negative); URINE SPECIFIC GRAVITY 1.015 (1.005-1.035); URINE UROBILINOGEN 0.2 E.U./dl (0.2-1.0)
[2019-09-30] MEDS ORDERED: FLOMAX0.4 MG PO (14:48)
[2019-09-30 15:56] VITALS: BP 142/66
== END 2019-09-30 16:20 | disposition home or self-care (01) ==
LOC: ER 12:58
PROVIDERS: Emergency Medicine
DX: R33.9 Retention of urine, unspecified (principal); I25.2 Old myocardial infarction; I10 Essential (primary) hypertension; E11.9 Type 2 diabetes mellitus without complications; Z90.49 Acquired absence of other specified parts of digestive tract; Z79.899 Other long term (current) drug therapy; Z79.82 Long term (current) use of aspirin; Z79.4 Long term (current) use of insulin

== ENCOUNTER → 2019-10-03 | Outpatient (CLI) | payer OTHER ==
[~2019-10-03] MED LIST changes: +FLOMAX0.4 MG PO
== END ==
LOC: HYPER 08:08
PROVIDERS: ATTEND Specialist
DX: E11.622 Type 2 diabetes mellitus with other skin ulcer (principal); L89.154 Pressure ulcer of sacral region, stage 4; L98.492 Non-pressure chronic ulcer of skin of other sites with fat layer exposed; E78.5 Hyperlipidemia, unspecified; G92 Toxic encephalopathy; I25.2 Old myocardial infarction; I10 Essential (primary) hypertension; K21.9 Gastro-esophageal reflux disease without esophagitis; M62.81 Muscle weakness (generalized); F10.20 Alcohol dependence, uncomplicated; Z79.84 Long term (current) use of oral hypoglycemic drugs; Z79.82 Long term (current) use of aspirin; Z79.4 Long term (current) use of insulin

== ENCOUNTER 2019-10-04 16:05 | Inpatient (IN) | payer OTHER ==
[~2019-10-04] VITALS: Ht 175.3 cm; Wt 59.0 kg
[2019-10-04 16:16] VITALS: BP 94/48
[2019-10-04 16:48] LABS: HEMATOCRIT 34.8 % (42.0-52.0); HEMOGLOBIN 11.8 gm/dL (14.0-18.0); MCH 30.6 pg (26.0-34.0); MCHC 33.8 g/dL (28.0-37.0); MCV 90.5 fL (80.0-100.0); PLATELET COUNT 354 thou/uL (150-400); RBC 3.85 mil/uL (4.50-6.00); RDW 13.8 % (10.5-14.5); URINE BILIRUBIN NEGATIVE (Negative); URINE BLOOD 2+ (Negative); URINE CLARITY CLEAR; URINE COLOR YELLOW; URINE GLUCOSE-RANDOM* NEGATIVE (Negative); URINE KETONES TRACE (Negative); URINE PROTEIN (DIPSTICK) 2+ (Negative); URINE UROBILINOGEN 0.2 E.U./dl (0.2-1.0); WBC 14.8 thou/uL (4.0-11.0)
[2019-10-04 16:49] LABS: URINE LEUKOCYTES-REFLEX 1+ (Negative); URINE NITRITE-REFLEX POSITIVE (Negative)
[2019-10-04 16:58] LABS: ANION GAP 7 mmol/L (7-16); BUN 17 mg/dL (7-18); CALCIUM 8.6 mg/dL (8.5-10.1); CHLORIDE 97 mmol/L (98-107); CO2 27 mmol/L (21-32); CREATININE 0.9 mg/dL (0.7-1.3); GLUCOSE 72 mg/dL (74-106); POTASSIUM 3.1 mmol/L (3.5-5.1); SODIUM 131 mmol/L (136-145)
[2019-10-04 17:02] LABS: CASTS None Seen /LPF (None Seen); MUCUS 0-3 Light strn/LPF (None Seen); SQUAMOUS 0-3 Few /LPF (0-3)
[2019-10-04 17:03] LABS: BACTERIA-REFLEX 1-9 Few /HPF (None Seen); CRYSTALS None Seen /LPF (None Seen); URINE RBC 3-10 Few /HPF (0-2); URINE WBC-REFLEX >25 Many /HPF (0-5)
[2019-10-04 17:05] LABS: AMP/METHAMP Negative (Negative); BARBITURATES Negative (Negative); BENZODIAZEPINES Negative (Negative); COCAINE Negative (Negative); METHADONE Negative (Negative); OPIATES POSITIVE (Negative); PCP Negative (Negative)
[2019-10-04 17:08] LABS: ALBUMIN 2.6 g/dL (3.4-5.0); MAGNESIUM 1.5 mg/dL (1.8-2.4); SGOT 17 U/L (15-37); SGPT 18 U/L (30-65); TOTAL BILIRUBIN 0.4 mg/dL (0.2-1.0); TOTAL PROTEIN 7.1 g/dL (6.4-8.2); TROPONIN-I <0.06 ng/mL (<0.06)
[2019-10-04 17:16] LABS: ABSOLUTE NEUTROPHILS 11.4 thou/uL (1.4-8.2); ANISOCYTOSIS 1+
[2019-10-04 20:21] VITALS: BP 94/48
[2019-10-04 21:35] VITALS: BP 133/62
[2019-10-04 21:42] VITALS: BP 94/48
--- NOTE | 2019-10-05 00:22 | NUR ---
ADMISSION ASSESSMENT COMPLETED. PT IS ALERT AND ORIENTED. PLEASANT AND COOPEARTIVE. AFEBRILE. GAMBOA TO D/D WITH GOOD U/O. IVF STARTED. BLOOD SUGAR AT 2233 WAS 41. AFTER EATING AND DRINKING LEVEL UP TO 103.PT DENIES ANY NAUSEA. ON ROOM AIR-NO RESP DISTRESS.C/O SACCRAL WOUND, WILL TAKE PICTURES.DENIES PAIN AT THIS TIME. FALL EDUCATION PROVIDED. FALL PREC IN PLACE.
[2019-10-05 04:40] VITALS: BP 122/66
[2019-10-05 05:39] LABS: HEMATOCRIT 33.4 % (42.0-52.0); HEMOGLOBIN 11.2 gm/dL (14.0-18.0); MCH 30.2 pg (26.0-34.0); MCHC 33.4 g/dL (28.0-37.0); MCV 90.3 fL (80.0-100.0); RBC 3.7 mil/uL (4.50-6.00); RDW 13.9 % (10.5-14.5); WBC 11.4 thou/uL (4.0-11.0)
[2019-10-05 06:02] LABS: CALCIUM 8.8 mg/dL (8.5-10.1); CREATININE 0.7 mg/dL (0.7-1.3); POTASSIUM 3.7 mmol/L (3.5-5.1)
[2019-10-05 07:30] VITALS: BP 140/79
--- NOTE | 2019-10-05 08:54 | EKG ---
[facility] [place] [address] ELECTROCARDIOGRAM REPORT Name: SHANTI MAHAN Room #: 438-P ADM IN M.R.#: [id number] Admission: 10/04/19 Attend Phys: Robert Hernandez MD Discharge: Date of : 51 Report #: [id number] THIS REPORT FOR: cc: ROGERS - Anel family physician/PCP ROGERS - No family physician/PCP Raman Yuan MD [facility] THIS REPORT FOR: //name// [facility] ED Test Date: 2019-10-04 Test Time: 16:30:00 Pat Name: SHANTI MAHAN Department: Room: 438 Gender: M [facility] 1950 Requested By: Dariusz Sprague Order Number: [id number] MD: Raman Yuan Measurements Intervals [place] Rate: 77 P: 54 CO: 145 QRS: -24 QRSD: 133 T: -24 QT: 423 QTc: 479 Interpretive Statements Sinus rhythm Right bundle branch block Compared to ECG 08/14/2019 13:25:02 Sinus rhythm is now present Electronically Signed On 10-05-2019 8:54:28 CDT by Raman Yuan [email or web address] <ELECTRONICALLY SIGNED> By: Raman Yuan MD, [facility] 10/05/19 0854 1630 1630 Raman Yuan MD, [facility] /EPI
--- NOTE | 2019-10-05 14:58 | NUR ---
PATIENT LEFT UNIT TO BE TAKEN TO PRE-OP
[2019-10-05 15:58] VITALS: BP 114/62
--- NOTE | 2019-10-05 16:08 | NUR ---
CONSULT FROM DR NAGY CALLED TO DR BROOKS FOR SURGICAL DEBRIDEMENT SACRAL ULCER. LEFT MESSAGE WITH DR BROOKS OFFICE DR BENNETT MEDICAL RECORDS AUDITOR TODAY.
--- NOTE | 2019-10-05 18:29 | NUR ---
ASSESSMENT-PT LIVES ALONE AND HAS BEEN ON SERVICE WITH [facility]. PT USES A ROLLER WALKER. DTR OLAYINKA LIVES HRS AWAY & CHECKS ON HIM OFTEN SHE CAN. PT IS NOT SAFE TO BE LIVING ALONE. PT HAS BEEN TO [facility] IN THE PAST BUT WOULD LIKE A DIFFERENT FACILITY. DTR HAS SNF LIST. FOLLOWING TO ASSIST WITH DC PLANNING.
[2019-10-05 20:29] VITALS: BP 120/54
--- NOTE | 2019-10-06 04:00 | NUR ---
ASSESSMENT COMPLETED. PT IS PLEASANT. NPO SINCE MIDNOC. I/D PLAN FOR TODAY.GAMBOA WITH GOOD U/O. AFEBRILE.SELF REPOSITIONS IN BED.
[2019-10-06 05:34] VITALS: BP 112/65
[2019-10-06 07:00] VITALS: BP 136/78
--- NOTE | 2019-10-06 15:48 | NUR ---
PT ASSESSED AT START OF SHIFT. NPO FOR SURGERY THIS AM BUT SURGERY RESCHEDULED FOR TOMORROW SO PT GIVEN LATE LUNCH AND WILL BE NPO AFTER MIDNOC. NO C/O PAIN. HAS RESTED IN BED GETTING UP FOR THE BATHROOM. IV FLUIDS INFUSING. GOOD URINE OUTPUT PER GAMBOA.
[2019-10-06 15:53] VITALS: BP 117/67
[2019-10-06 19:35] VITALS: BP 127/68
[2019-10-07 03:52] VITALS: BP 119/53
--- NOTE | 2019-10-07 05:43 | NUR ---
RECIEVED CARE OF THIS PATIENT AT 1900. PATIENT ALERT AND ORIENTED X4. UP TO BATHROOM FOR BM'S AND GAMBOA THAT IS PATENT YELLOW URINE. ACCUCHECK WAS 79. SNACK WAS GIVEN, NO INSULIN COVERAGE GIVEN. DRESSING ON SACRUM WAS DONE. WOUND TUNNELING WITH SOME ESCHAR TISSUE. HAS BEEN NPO SINCE MA FOR I AND D. SLEPT OFF AND ON DURING NIGHT.
[2019-10-07 07:28] VITALS: BP 121/95
[2019-10-07 10:23] VITALS: BP 141/67
--- NOTE | 2019-10-07 16:57 | HC ---
[facility] [place] [address] CONSULTATION Name: SHANTI MAHAN Room #: 438-P [facility] IN M.R.#: [id number] Admission: 10/04/19 Attend Phys: Robert Hernandez MD Discharge: Date of : 52 Report #: [id number] THIS REPORT FOR: cc: ROGERS - Anel family physician/PCP ROGERS - No family physician/PCP Cy Reina MD ~ CC: Robert MCCLOUD physician/PCP DATE OF SERVICE: 10/05/2019 CHIEF COMPLAINT: Sacral pressure ulceration. HISTORY OF PRESENT ILLNESS: This is a 68-year-old male patient with a history of seizures secondary to hypoglycemia and history of alcohol abuse, presented to the Emergency Department with acute mental status changes and weakness. During his evaluation, he was noted to have a sacral pressure ulceration. He has been seen for this in the past. I have been asked to see him with regards to wound care. The patient is a little bit confused, although cooperative. Denies pain unless the ulceration is palpated. PAST MEDICAL HISTORY: Significant for hypertension, appendectomy, alcohol abuse, uncontrolled diabetes mellitus and hypoglycemia with a history of seizures. SOCIAL HISTORY: Positive for daily alcohol use. He is a nonsmoker other than marijuana. MEDICATIONS: Carvedilol, aspirin, [place], Ativan, Flomax, Lovenox, Lipitor, Silvadene, insulin, pantoprazole, metformin, lorazepam. ALLERGIES: No known drug allergies. REVIEW OF SYSTEMS: Somewhat limited due to the patient's cooperativeness. He does have pain in his sacrum. He denies shortness of breath or abdominal pain. Other systems are listed in the history of present illness or otherwise unobtainable. PHYSICAL EXAMINATION: VITAL SIGNS: Include temperature 36.7, pulse 74, respiratory rate 16, blood pressure 127/68. GENERAL: This is a chronically ill-appearing male patient who appears to be in minimal distress. HEENT: Head normocephalic. Nose and throat clear. NECK: Supple. LUNGS: Clear. [facility] [address] [place] [address] CONSULTATION Name: SHANTI MAHAN Room #: 438-[facility] IN ..#: [id number] Admission: 10/04/19 Attend Phys: Robert Hernandez MD Discharge: Date of : 51 Report #: [id number] ABDOMEN: Soft. Bowel sounds are present. EXTREMITIES: Sacral region demonstrates a stage 4 sacral pressure ulceration. It is covered with moderate fibrin and I can palpate bone in the deeper base. It is tender and it is significantly indurated to the surrounding tissue. IMPRESSION: 1. Urinary tract infection. 2. Weakness and falls. 3. Hypertension. 4. Diabetes mellitus with hyperglycemia. RECOMMENDATIONS: At this point in time, we recommend a moist gauze dressing. He would do best with a surgical debridement. I have consulted Dr. Stanley to see him with regard to a debridement while he is here in the hospital. I think a moist gauze dressing or possibly a wound VAC following this would be appropriate. He will need ongoing nutritional support. In the meantime, a low air loss mattress with q. 2 hour turning and positioning and physical and occupational therapy as he can tolerate. I appreciate being asked to see the patient again in consultation. <ELECTRONICALLY SIGNED> By: Cy Reina MD 10/07/19 1657 1622 1636 Cy Reina MD /nt
--- NOTE | 2019-10-07 19:29 | NUR ---
PT RETURNED FROM I&D OF SACRUM. DRSG IS SOILED AND WITH MODERATE SEROUS SANG. DRAINAGE, REINFORCED WITH 4X4'S'. PAIN WAS NOT CONTROLLED, DOCTOR CALLED FOR MOERE COVERAGE. TORDOL WAS ORDERED AND GIVEN, PT STATES PAIN IS MORE CONTROLLED. CALL LIGHT W/I REACH, BED ALARM ON.
[2019-10-07 20:30] VITALS: BP 121/55
--- NOTE | 2019-10-08 03:24 | NUR ---
ASSESED AT START OF SHIFT, PT RESTING IN
[2019-10-08 04:55] VITALS: BP 135/44
--- NOTE | 2019-10-08 05:04 | HC ---
[facility] [place] [address] CONSULTATION Name: SHANTI MAHAN Room #: 438-P [facility] IN M.R.#: [id number] Admission: 10/04/19 Attend Phys: Robert Hernandez MD Discharge: Date of : 52 Report #: [id number] THIS REPORT FOR: cc: ROGERS - Anel family physician/PCP ROGERS - No family physician/PCP Martinez Kenny MD ~ CC: Robert MCCLOUD physician/PCP DATE OF SERVICE: 10/07/2019 INFECTIOUS DISEASE CONSULTATION ATTENDING PHYSICIAN: Dr. Hernandez. REASON FOR EVALUATION: Complicated urinary tract infection, sacral decubitus ulcer, suspected infection as well. HISTORY OF PRESENT ILLNESS: Chart reviewed, patient examined. This is a 68-year-old fairly significant medical history, has diabetes mellitus and has been complicated by vasculopathy, known coronary artery disease with previous and recent acute myocardial infarction. He was hospitalized for several weeks, developed a decubitus ulcer involving his sacrococcyx area. He had been at rehab up until last 2 weeks. He sustained in a fall. It was not quite syncopal episode, was brought to the Emergency Room, was found to have marked pyuria consistent with a complicated urinary tract infection. Urine culture with growth of Enterobacter that is remarkable for a moderate resistance, also had undergone operative debridement of a stage 4 sacral decubitus ulcer. From this standpoint, he denies significant amount of pain or discomfort. He has not been febrile. His appetite has been fair. No pulmonary or gastrointestinal related complaints other than some constipation. He was empirically started on therapy with ceftriaxone. ALLERGIES: None known. MEDICATIONS: Include ondansetron as needed, ceftriaxone, insulin lispro, p.r.n. analgesics. PAST MEDICAL HISTORY: Above noted diabetes mellitus, not well controlled, complicated by vasculopathy, coronary artery disease, previous HI August 2019, history of seizure disorder, history of hypertension. SOCIAL HISTORY: Former smoker. Regular ethanol use, no illicit drug use, although does use marijuana. FAMILY HISTORY: Noncontributory. [facility] [address] [place] [address] CONSULTATION Name: SHANTI MAHAN Room #: [facility] IN ..#: [id number] Admission: 10/04/19 Attend Phys: Robert Hernandez MD Discharge: Date of : 52 Report #: [id number] REVIEW OF SYSTEMS: Otherwise, unremarkable 10-point review of systems. PHYSICAL EXAMINATION: GENERAL: He is alert, cooperative, appropriate. He is seen postoperative. He is lucid, mildly undernourished. VITAL SIGNS: Temperature 97.7, pulse 65, respirations 18, blood pressure 141/67. SKIN: Warm, dry, no rashes. HEENT: Normocephalic. Extraocular muscles are intact. NECK: Supple. LUNGS: Somewhat diminished overall, few scattered crackles at the bases. HEART: Regular. I do not appreciate a murmur. ABDOMEN: Soft, nontender, nondistended. Did not remove the surgical dressing. RECTAL: Deferred. LABORATORY DATA: Urine culture described above, greater than 10 to the fifth Enterobacter that was in vitro susceptible to ceftriaxone. Reviewed the operative report. Coronavirus testing was negative. Most recent CBC: White count 11.4, H and H 11.2 and 33.4, platelets of 359. Chest x-ray, no acute process on admission. Electrolytes: Sodium 131, potassium 3.1, chloride 97, bicarbonate is 27, anion gap of 7, BUN and creatinine 17 and 0.9. Liver functions unremarkable. Albumin of 2.6, total protein 7.1. Estimated GFR of 84. Urinalysis, greater than 25 white cells. ASSESSMENT AND PLAN: Complicated urinary tract infection, not resistant Enterobacter. Ceftriaxone should have adequate coverage. Secondly, has a stage 4 sacral decubitus ulcer, it is not clear; according to the patient, there is felt to be a secondary infection and may be more just devitalized tissue. He has not been systemically ill per him, his recollection. We will discern additional information that if we need to broaden the antimicrobial therapy at this point. Otherwise, we will continue the same. Add incentive spirometry. Try to optimize his nutritional status. Wound care with offloading. <ELECTRONICALLY SIGNED> By: Martinez Kenny MD 10/08/19 0504 1122 1240 Martinez Kenny MD /nt
--- NOTE | 2019-10-08 05:31 | NUR ---
ASSESSED AT START OF SHIFT. PT A&OX4. DENIES N/V. SACRAL WOUND DRESSING INTACT NO DRAINAGE. IV LEAKING ON ASSESSEMENT. NEW IV 22 G INSERTED IN RT FA. FOLLEY INTACT AND DRAINING. MELATONIN GIVEN FOR SLEEP. PT SLEPT MOST OF THE NIGHT. FALL PREC IN PLACE AND CALL LIGHT IN REACH WILL CONT WITH POC TILL EOS.
[2019-10-08 08:07] VITALS: BP 120/63
[2019-10-08 15:47] VITALS: BP 100/55
--- NOTE | 2019-10-08 19:33 | NUR ---
PT A&OX4. IV INTACT IN R FA INFUSING FLUIDS W/O COMPS. TRANFERS TO CHAIR WITH MODERATE ASSIST. SACRAL WOUND PACKED WITH DAKENS, COVERED WITH ABD, SECURED WITH TAPE. PT PAIN MED WAS INCREASED NOW TOLERATING PAIN BETTER. CALL LIGHT W/I REACH.
[2019-10-08 20:04] VITALS: BP 119/69
--- NOTE | 2019-10-09 04:00 | NUR ---
PT CALM AND COOPERATIVE. NO BM. PASSING FLATUS AND SAYS HE FEELS LIKE HE IS ABOUT TO HAVE A BM. MIRALAX SCHEDULED GIVEN.GOOD U/O. DRSG TO COCCYX CHANGED. PT MAKES NEEDS KNOWN.
[2019-10-09 08:12] VITALS: BP 164/98
[2019-10-09 15:20] VITALS: BP 126/54
[2019-10-09] MEDS ORDERED: LEVAQUIN 500 M500 M1 PO (16:28)
[2019-10-09] MEDS ORDERED: REMERON 30 MG T30 M1 PO (16:28)
--- NOTE | 2019-10-09 16:55 | NUR ---
CARE TEAM INDICATED THAT FAMILY DIDN'T WANT FOR PT TO GO TO A FACILITY. PT WAS DISCHARGE FROM PT HAVING NO MOBILITY DEFICITS. CARE TEAM INDICATED THAT PT IS MEDICALLY STABLE TO DC HOME THIS DAY TO SELF CARE. NO OTHER CM INTERVENTION INDICATED. CASE CLOSED.
[2019-10-09 17:04] VITALS: BP 126/54
[2019-10-09 19:27] VITALS: BP 132/73
[2019-10-09 20:00] VITALS: BP 126/54
[2019-10-09 20:14] VITALS: BP 126/54
--- NOTE | 2019-10-09 20:15 | NUR ---
WOUND PICTURES TAKEN . PT DISCHARGED AT THIS TIME. NO PAIN OR RESP DISTRESS AT DISCHARGE GAVE 1 RX AND PT STATES 2 WAS CALL TO HIS [facility],HE GOT MESSAGE ON HIS PHONE WOUND SUPPLIES AND HIS C-PAP AND HIS BELONGINGS PACKED AND SENT WITH PATIENT. SON HERE AT THIS TIME TO DISCHARGE HIM AND TAKE HIM HOME.
--- NOTE | 2019-10-10 07:45 | EKG ---
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: Rozina AGUAYO : 1950 Requested By: Dariusz Angulo Order Number: [id number] MD: Raman Yuan Measurements Intervals [place] Rate: 66 P: 17 MO: 144 QRS: -70 QRSD: 125 T: -25 QT: 403 QTc: 423 Interpretive Statements Sinus rhythm RBBB and LAFB Compared to ECG 10/04/2019 16:30:00 Left anterior fascicular block now present Electronically Signed On 10-10-2019 7:45:28 CDT by Raman Yuan [email or web address] <ELECTRONICALLY SIGNED> By: Raman Yuan MD, [facility] 10/10/19 0745 1607 1607 Raman Yuan MD, FAC /EPI
--- NOTE | 2019-10-11 16:06 | PATH ---
[facility] [address] [place] [address] PATHOLOGY RPT PROCEDURE Name: KEVEN MAHAN Room #: 438-P DIS IN M.R.#: [id number] Admission: 10/04/19 Date of : 52 Discharge: 10/09/19 Report #: [id number] Path Case #: [id number] [facility] Accession Number: [id number] . 01 Material submitted: . sacrum - INCISION AND DRAINAGE,SACRAL DECUBITUS WOUND . 01 Clinician provided ICD-10: N39.0 . 02 Diagnosis: Skin and subcutaneous tissue "sacral decubitus wound", debridement: - Ulceration with acute and chronic inflammation, edema, and necrosis. - Negative for malignancy. (JULIA:galo; 10/11/2019) MBR 10/11/2019 1522 Local . 02 Electronically signed: . Lorraine Page MD, Pathologist NPI- [id number] . 01 Gross description: . The specimen is received in formalin, labeled "Dostal, Keven, sacral decubitus wound" and consists of a segment of pink-smith tissue measuring 3.5 x 2.6 x 1.8 cm. Sectioning reveals homogeneous smith cut surface. A site safety representative section is submitted in A1. ([facility]; 10/10/2019) JFQ/JFQ 10/10/2019 1609 Local . 02 Pathologist provided ICD-10: L89.159 . 02 CPT . 676807 Specimen Comment: A courtesy copy of this report has been sent to [phone] Specimen Comment: [phone] Specimen Comment: Report sent to / DR BROOKS Performed at: [address], [place] [id number] MD William Willoughby MD Phone: [phone] Performed at: [address] [id number] MD Karuna De La Rosa MD Phone: [phone]
== END 2019-10-09 20:26 | disposition home health service (06) | DRG 579 ==
LOC: ER 16:05 → EROBS 19:31 → 4S 19:31
PROVIDERS: Emergency Medicine; Nurse Practitioner Family; ADMIT Hospitalist; ATTEND Hospitalist
PROC: 0JD70ZZ Extraction of Back Subcutaneous Tissue and Fascia, Open Approach (ICD-10-PCS; principal; 2019-10-07)
DX: L89.154 Pressure ulcer of sacral region, stage 4 (principal); E43 Unspecified severe protein-calorie malnutrition; G92 Toxic encephalopathy; N39.0 Urinary tract infection, site not specified; E87.1 Hypo-osmolality and hyponatremia; E44.0 Moderate protein-calorie malnutrition; Z68.1 Body mass index [BMI] 19.9 or less, adult; I10 Essential (primary) hypertension; F10.11 Alcohol abuse, in remission; I25.10 Atherosclerotic heart disease of native coronary artery without angina pectoris; E87.6 Hypokalemia; E83.42 Hypomagnesemia; R29.6 Repeated falls; E11.65 Type 2 diabetes mellitus with hyperglycemia; E78.5 Hyperlipidemia, unspecified; G47.00 Insomnia, unspecified; K59.00 Constipation, unspecified; R33.9 Retention of urine, unspecified; B95.2 Enterococcus as the cause of diseases classified elsewhere; Z87.891 Personal history of nicotine dependence; I25.2 Old myocardial infarction; Z90.89 Acquired absence of other organs; Z79.82 Long term (current) use of aspirin; Z79.84 Long term (current) use of oral hypoglycemic drugs; Z79.4 Long term (current) use of insulin; Z79.891 Long term (current) use of opiate analgesic; Z79.899 Other long term (current) drug therapy; Z03.818 Encounter for observation for suspected exposure to other biological agents ruled out
CPT/HCPCS: 10195; 50101; 50386; 50403; 62110; 62900; 70005

== ENCOUNTER → 2019-10-17 | Outpatient (CLI) | payer OTHER ==
[~2019-10-17] MED LIST changes: +LEVAQUIN 500 M500 M1 PO; +REMERON 30 MG T30 M1 PO
== END ==
LOC: HYPER 10-16 14:48
PROVIDERS: ATTEND Specialist
DX: E11.622 Type 2 diabetes mellitus with other skin ulcer (principal); L89.154 Pressure ulcer of sacral region, stage 4; L98.491 Non-pressure chronic ulcer of skin of other sites limited to breakdown of skin; E78.5 Hyperlipidemia, unspecified; G92 Toxic encephalopathy; I25.2 Old myocardial infarction; I10 Essential (primary) hypertension; K21.9 Gastro-esophageal reflux disease without esophagitis; M62.81 Muscle weakness (generalized); F10.20 Alcohol dependence, uncomplicated; Z79.82 Long term (current) use of aspirin; Z79.4 Long term (current) use of insulin; Z79.84 Long term (current) use of oral hypoglycemic drugs

== ENCOUNTER → 2019-11-07 | Outpatient (CLI) | payer OTHER | LOC: HYPER 10-31 10:37 | PROVIDERS: ATTEND Specialist | DX: E11.622 Type 2 diabetes mellitus with other skin ulcer (principal); L89.154 Pressure ulcer of sacral region, stage 4; L98.491 Non-pressure chronic ulcer of skin of other sites limited to breakdown of skin; M62.81 Muscle weakness (generalized); G92 Toxic encephalopathy; I25.2 Old myocardial infarction; I10 Essential (primary) hypertension; K21.9 Gastro-esophageal reflux disease without esophagitis; E78.5 Hyperlipidemia, unspecified; F10.20 Alcohol dependence, uncomplicated; Z79.4 Long term (current) use of insulin; Z79.82 Long term (current) use of aspirin ==

== ENCOUNTER → 2019-11-21 | Outpatient (CLI) | payer OTHER | LOC: HYPER 09:57 | PROVIDERS: ATTEND Specialist | DX: E11.622 Type 2 diabetes mellitus with other skin ulcer (principal); L89.154 Pressure ulcer of sacral region, stage 4; L98.491 Non-pressure chronic ulcer of skin of other sites limited to breakdown of skin; M62.81 Muscle weakness (generalized); G92 Toxic encephalopathy; I25.2 Old myocardial infarction; I10 Essential (primary) hypertension; K21.9 Gastro-esophageal reflux disease without esophagitis; E78.5 Hyperlipidemia, unspecified; F10.20 Alcohol dependence, uncomplicated; Z79.82 Long term (current) use of aspirin; Z79.4 Long term (current) use of insulin ==

== ENCOUNTER → 2019-12-05 | Outpatient (CLI) | payer OTHER | LOC: HYPER 09:53 | PROVIDERS: ATTEND Specialist | DX: E11.622 Type 2 diabetes mellitus with other skin ulcer (principal); L89.154 Pressure ulcer of sacral region, stage 4; L98.491 Non-pressure chronic ulcer of skin of other sites limited to breakdown of skin; B36.9 Superficial mycosis, unspecified; G92 Toxic encephalopathy; E78.5 Hyperlipidemia, unspecified; I25.2 Old myocardial infarction; I10 Essential (primary) hypertension; K21.9 Gastro-esophageal reflux disease without esophagitis; M62.81 Muscle weakness (generalized); F10.20 Alcohol dependence, uncomplicated; Z79.82 Long term (current) use of aspirin; Z79.4 Long term (current) use of insulin; Z79.84 Long term (current) use of oral hypoglycemic drugs ==

== ENCOUNTER 2019-12-17 13:08 | Emergency (ER) | payer OTHER ==
[~2019-12-17] VITALS: Ht 172.7 cm; Wt 68.0 kg
[2019-12-17] MEDS ORDERED: KEFLEX500 M1 PO (15:17)
[2019-12-17 15:20] VITALS: BP 166/89
[2019-12-17] MEDS ORDERED: MUPIROCIN15 GM TOP (15:21)
== END 2019-12-17 15:20 | disposition home or self-care (01) ==
LOC: ER 13:08
DX: S02.31XA Fracture of orbital floor, right side, initial encounter for closed fracture (principal); T14.90XA Injury, unspecified, initial encounter; I10 Essential (primary) hypertension; E11.9 Type 2 diabetes mellitus without complications; Z90.49 Acquired absence of other specified parts of digestive tract; Z79.899 Other long term (current) drug therapy; Z79.82 Long term (current) use of aspirin; Z79.4 Long term (current) use of insulin; W19.XXXA Unspecified fall, initial encounter; Y93.89 Activity, other specified; Y92.89 Other specified places as the place of occurrence of the external cause; Y99.8 Other external cause status

== ENCOUNTER → 2019-12-19 | Outpatient (CLI) | payer OTHER ==
[~2019-12-19] MED LIST changes: +KEFLEX500 M1 PO; +MUPIROCIN15 GM TOP
== END ==
LOC: HYPER 10:17
PROVIDERS: ATTEND Specialist
DX: E11.622 Type 2 diabetes mellitus with other skin ulcer (principal); L89.154 Pressure ulcer of sacral region, stage 4; L98.492 Non-pressure chronic ulcer of skin of other sites with fat layer exposed; S00.83XD Contusion of other part of head, subsequent encounter; G92 Toxic encephalopathy; B36.9 Superficial mycosis, unspecified; E78.5 Hyperlipidemia, unspecified; I25.2 Old myocardial infarction; I10 Essential (primary) hypertension; M62.81 Muscle weakness (generalized); K21.9 Gastro-esophageal reflux disease without esophagitis; F10.20 Alcohol dependence, uncomplicated; Z79.82 Long term (current) use of aspirin; Z79.4 Long term (current) use of insulin; Z79.84 Long term (current) use of oral hypoglycemic drugs; X58.XXXD Exposure to other specified factors, subsequent encounter

== ENCOUNTER → 2020-01-02 | Outpatient (CLI) | payer OTHER | LOC: HYPER 10:12 | PROVIDERS: ATTEND Specialist | DX: E11.622 Type 2 diabetes mellitus with other skin ulcer (principal); L89.154 Pressure ulcer of sacral region, stage 4; L98.492 Non-pressure chronic ulcer of skin of other sites with fat layer exposed; S02.31XD Fracture of orbital floor, right side, subsequent encounter for fracture with routine healing; S00.83XD Contusion of other part of head, subsequent encounter; M62.81 Muscle weakness (generalized); G92 Toxic encephalopathy; B36.9 Superficial mycosis, unspecified; R26.9 Unspecified abnormalities of gait and mobility; I25.2 Old myocardial infarction; I10 Essential (primary) hypertension; K21.9 Gastro-esophageal reflux disease without esophagitis; E78.5 Hyperlipidemia, unspecified; R29.6 Repeated falls; F10.20 Alcohol dependence, uncomplicated; Z79.82 Long term (current) use of aspirin; Z79.4 Long term (current) use of insulin; W19.XXXD Unspecified fall, subsequent encounter ==

== ENCOUNTER → 2020-01-16 | Outpatient (CLI) | payer OTHER | LOC: HYPER 10:01 | PROVIDERS: ATTEND Specialist | DX: E11.622 Type 2 diabetes mellitus with other skin ulcer (principal); L89.154 Pressure ulcer of sacral region, stage 4; L98.492 Non-pressure chronic ulcer of skin of other sites with fat layer exposed; S00.83XD Contusion of other part of head, subsequent encounter; S02.31XD Fracture of orbital floor, right side, subsequent encounter for fracture with routine healing; G92 Toxic encephalopathy; B36.9 Superficial mycosis, unspecified; R29.6 Repeated falls; R26.9 Unspecified abnormalities of gait and mobility; I25.2 Old myocardial infarction; I10 Essential (primary) hypertension; K21.9 Gastro-esophageal reflux disease without esophagitis; E78.5 Hyperlipidemia, unspecified; F10.20 Alcohol dependence, uncomplicated; Z79.4 Long term (current) use of insulin; Z79.82 Long term (current) use of aspirin; X58.XXXD Exposure to other specified factors, subsequent encounter ==

== ENCOUNTER → 2020-01-30 | Outpatient (CLI) | payer OTHER | LOC: HYPER 10:09 | PROVIDERS: ATTEND Specialist | DX: E11.622 Type 2 diabetes mellitus with other skin ulcer (principal); L89.154 Pressure ulcer of sacral region, stage 4; L98.491 Non-pressure chronic ulcer of skin of other sites limited to breakdown of skin; S00.83XD Contusion of other part of head, subsequent encounter; S02.31XD Fracture of orbital floor, right side, subsequent encounter for fracture with routine healing; M62.81 Muscle weakness (generalized); G92 Toxic encephalopathy; B36.9 Superficial mycosis, unspecified; R29.6 Repeated falls; R26.9 Unspecified abnormalities of gait and mobility; I25.2 Old myocardial infarction; I10 Essential (primary) hypertension; K21.9 Gastro-esophageal reflux disease without esophagitis; E78.5 Hyperlipidemia, unspecified; F10.20 Alcohol dependence, uncomplicated; Z79.4 Long term (current) use of insulin; Z79.82 Long term (current) use of aspirin; X58.XXXD Exposure to other specified factors, subsequent encounter ==

== ENCOUNTER → 2020-03-05 | Outpatient (CLI) | payer OTHER | LOC: HYPER 08:49 | PROVIDERS: ATTEND Specialist | DX: E11.622 Type 2 diabetes mellitus with other skin ulcer (principal); L89.154 Pressure ulcer of sacral region, stage 4; L98.491 Non-pressure chronic ulcer of skin of other sites limited to breakdown of skin; S00.83XD Contusion of other part of head, subsequent encounter; M62.81 Muscle weakness (generalized); G92 Toxic encephalopathy; B36.9 Superficial mycosis, unspecified; E78.5 Hyperlipidemia, unspecified; I25.2 Old myocardial infarction; I10 Essential (primary) hypertension; K21.9 Gastro-esophageal reflux disease without esophagitis; F10.20 Alcohol dependence, uncomplicated; Z79.4 Long term (current) use of insulin; Z79.82 Long term (current) use of aspirin; X58.XXXD Exposure to other specified factors, subsequent encounter ==